=== PATIENT | female | born 1935 | race Caucasian/White ===

== ENCOUNTER 2019-11-30 14:52 | Inpatient (IN) | payer MEDICARE, SELFPAY ==
[2019-11-30] VITALS (7 sets, daily range): BP systolic 104–155; BP diastolic 52–85; PULSE 94–120; RESP 18–32; TEMP 36.2–36.9; O2SAT 92–100; BMI 21.6
--- NOTE | ~2019-11-30 | CT_ITS ---
EXAMINATION: CTA chest PE protocol DATE: 12/02/2019 13:29 INDICATION: Shortness of breath. Hypoxemia. Elevated d-dimer TECHNIQUE: Computed tomography angiography (CTA) of the chest was performed with 100 mL Omnipaque-350 intravenous contrast timed to evaluate the pulmonary arteries. Coronal maximum intensity projection 3D-reconstructions were created by the technologist. Automated exposure control and iterative reconst ruction technique were employed. Exam dose: 179.10 mGy-cm total exam DLP. COMPARISON: 08/04/2019 portable AP chest / portable AP chest 11/30/2019 portable AP chest FINDINGS: There is moderate opacification the pulmonary arteries and no evidence of pulmonary embolis m. Cardiomegaly. No pericardial effusion. There is extensive thoracic aortic calcification but no evidence of thoracic aortic aneurysm or disse ction. Coronary artery calcifications. Emphysematous changes of the lungs. Bilateral apical scarring, greater on the right. No pulmonary inf iltrate or consolidation or pulmonary mass lesion is evident. There is old granulomatous disease including calcified right hilar and subcarinal nodes and extensive calcified hepatic and splenic granulomas. No hilar or mediastinal mass lesion or lymphadenopathy. Bilateral glenohumeral osteoarthritis. No suspicious osteolytic or osteoblastic lesions are noted. IMPRESSION: Emphysema No evidence of pulmonary embolism Reviewed, dictated and finalized at [facility]. Reviewed, dictated and finalized at location B. OLE PRESSER
--- NOTE | ~2019-11-30 | XR_ITS ---
EXAMINATION: XR chest 1V portable DATE: 11/30/2019 15:28 INDICATION: Tarsal breath and hypoxemia TECHNIQUE: frontal view of the chest was obtained. COMPARISON: Chest radiograph dated 11/22/2019 FINDINGS: Hyperexpansion of the lungs and flattening of the diaphragm. There is increased lucency and developer architect ural distortion at the bilateral lung bases suggesting bullous emphysema. Calcified pulmonary nodules in the right lung and calcified right hilar lymph nodes consistent with old granulomatous disease. N o pulmonary edema or pneumothorax. Chronic blunting at the costophrenic angles which was present with out blunting of the posterior sulci on earlier two-view chest radiograph dated 10/15/2017 which would favor pleural parenchymal scarring over small pleural effusions. The cardiomediastinal silhouette is normal. Atherosclerotic aorta. Moderate degenerative skeletal changes in the spine and at the right s houlder. IMPRESSION: 1. Emphysema. No acute cardiopulmonary disease. Reviewed, dictated and finalized at location A. DESIGNER APPRENTICE
--- NOTE | ~2019-11-30 | US_ITS ---
EXAMINATION: US venous doppler [facility] DATE: 12/02/2019 13:46 INDICATION: Shortness of breath, abnormal d-dimer TECHNIQUE: Waite scale images without and with compression and Doppler images of the bilateral lower e xtremity veins were obtained. COMPARISON: None. FINDINGS: The right common femoral vein, profunda femoral vein, femoral vein, popliteal vein, peroneal trunk, p osterior tibial veins, and greater saphenous vein are patent. The left common femoral vein, profunda femoral vein, femoral vein, popliteal vein, peroneal trunk, po sterior tibial veins, and greater saphenous vein are patent. IMPRESSION: 1. Patent bilateral lower extremity veins. No evidence of deep venous thrombosis. Reviewed, dictated and finalized at location A. CLEANER IMPRESSION: 1. Patent bilateral lower extremity veins. No evidence of deep venous thrombosi s.
--- NOTE | 2019-11-30 15:05 | ECG_ITS ---
Measurements Intervals [place] Rate: 110 P: ID: 0 QRS: 93 QRSD: 81 T: 98 QT: 327 QTc: 442 Interpretive Statements ATRIAL FIBRILLATION WITH RAPID VENTRICULAR RESPONSE VENTRICULAR COUPLET RIGHT AXIS DEVIATION BORDERLINE R WAVE PROGRESSION, ANTERIOR LEADS BORDERLINE T WAVE ABNORMALITY- LATERAL LEADS BASELINE ARTIFACT- I, II, III, AVR, AVL, AVF, V1-V6 ABNORMAL ECG Electronically Signed On 12-01-2019 7:18:05 BENEFITS ADMINISTRATOR by Cecilio Kevin D.O.
--- NOTE | 2019-11-30 15:31 | ED.SOB ---
HPI - SOB/Dyspnea General Chief Complaint: Shortness of Breath/Dyspnea Stated Complaint: Ambulance Source: patient Mode of arrival: EMS Limitations: other (Hard of hearing) History of Present Illness HPI Narrative: 84 y.o. with COPD developed increase fatigue and shortness of breath 3 days ago. SOB worse today, not relieved with oxygen 3 L per n.p. She typically uses oxygen 2-2.5 L at night. Pulse ox runs 89%-90%. Yesterday she needed continuous O2; increased to 3 L. today with only temporary improvement. Paramedics reported pulse ox of 78% on room air; 90% on 4 liters. She has an occasional cough, sometimes productive of thick sputum. This hasn't changed recently. She fell back hitting the corner of a table several days ago. Pain with palpation only; denies pain with breathing. Exacerbating factors: exertion Relieving factors: oxygen Treatment prior to arrival: oxygen, bronchodilator and other (solumedrol 125 mg) Related Data Home oxygen amount: 4 liters Home Medications Medication Instructions Recorded Confirmed aspirin [Adult Low Dose Aspirin] 81 mg PO DAILY 11/22/19 11/30/19 buspirone 2.5 mg PO BID PRN 11/22/19 11/30/19 coQ10 (ubiquinol) 100 mg PO DAILY 11/22/19 11/30/19 fludrocortisone 0.1 mg PO BID 11/22/19 11/30/19 levothyroxine 50 mcg PO DAILY 11/22/19 11/30/19 midodrine 5 mg PO QID 11/22/19 11/30/19 alqvzjhq-zgk-FS-lycopen-lutein 1 tablet PO DAILY 11/22/19 11/30/19 [Centrum Silver] potassium chloride 20 meq PO DAILY 11/22/19 11/30/19 pravastatin 40 mg PO DAILY 11/22/19 11/30/19 sennosides-docusate sodium 1 tab-cap PO HS 11/22/19 11/30/19 [Senokot-S] Allergies Allergy/AdvReac Type Severity Reaction Status Date / Time Penicillins Allergy Intermediate Verified 11/23/19 00:48 Review of Systems Review of Systems: Narrative: Alert. In good spirits. Talking with friends. Constitutional: Constitutional: Denies chills and Denies fever(s) ENT: Denies dizziness and Denies nasal congestion Cardiovascular: Cardiovascular: Denies chest pain and Denies radiating jaw, neck or arm pain Respiratory: Respiratory: Reports as per HPI Gastrointestinal: Gastrointestinal: Denies abdominal pain, Denies diarrhea, Denies nausea and Denies vomiting Genitourinary: Genitourinary: Denies dysuria Musculoskeletal: Musculoskeletal: Reports no additional musculoskeletal complaints Integumentary/Breasts: Skin/Breast: Denies rash Neurologic: Denies syncope Hematologic/Lymphatic: Hematologic/Lymphatic: Denies easy bleeding PMFSH Past Medical History Medical History Chronic a-fib Diverticulitis Dysphagia Esophageal dilatation Esophageal stricture Foreign body aspiration Fracture of right hip requiring operative repair GERD (gastroesophageal reflux disease) H/O: CVA (cerebrovascular accident) Hyperlipidemia Lower GI bleed Social History Social History (Updated 11/30/19 @ 22:30 by Messi Siegel MD) Smoking packs per day: 0.75 Smoking cigarettes per day: 15.0 Years smoked: 65 Smoking pack-years: 48.75 Smoking status: Current some day smoker Tobacco type: cigarettes Alcohol intake: never Substance use: never Gender identity (if verbalized by the patient): Female Spiritual care concerns: No Agree to blood products: Yes Exam Const: Orientation/consciousness: patient oriented x3 HENMT: Head: normal to inspection Mouth: Yes Normal oral and palatal mucosa present Other: Decayed left maxillary molar Eyes: Conjunctivae: conjunctivae normal Neck: Neck: no lymphadenopathy Chest: Other: barrel chest Resp: Auscultation: rales on the left at the base and wheezes throughout Cardio: Heart sounds: no murmurs GI: GI Palp: Yes Soft to palpation and No Tenderness to palpation present (GI) Back/Spine/Pelvis: Other: Tender left mid-scapular line, lower rib cage Neuro: General: patient oriented x3 and moves all extremities Extrem:
[2019-11-30] MEDS: IPRATROPIUM 0.5 MG/ALBUTEROL SULFATE 2.5 MG AMPUL.NEB 3 ML INHALATION (15:33)
[2019-11-30 15:48] LABS: Basophils Absolute Auto 0.03 K/mm3 (0.00-0.10); Basophils Percent Auto 0.2 % (0.0-1.0); Eosinophils Absolute Auto 0.27 K/mm3 (0.02-0.50); Hematocrit 37.6 % (35.0-42.0); Hemoglobin 11.1 g/dL (11.7-13.8); Immature Granulocyte Absolute 0.07 K/mm3 (0.00-0.00); Immature Granulocyte Percent A 0.5 % (0.0-0.0); Lymphocytes Absolute Auto 0.68 K/mm3 (1.10-4.50); Lymphocytes Percent Auto 5.1 % (18.0-42.0); Mean Corpuscular HGB Conc 29.5 g/dL (32.0-36.0); Mean Corpuscular Hemoglobin 24.1 pg (27.0-31.0); Mean Corpuscular Volume 81.6 fL (78.0-102.0); Mean Platelet Volume 10.6 fl (9.2-11.8); Monocytes Absolute Auto 0.38 K/mm3 (0.10-0.90); Monocytes Percent Auto 2.8 % (2.0-11.0); Neutrophils Percent Auto 89.4 % (50.0-70.0); Platelet Count Result 204 K/mm3 (150-420); Red Blood Count 4.61 M/mm3 (4.20-5.40); White Blood Count 13.4 K/mm3 (4.8-10.8)
[2019-11-30] MEDS: MIDODRINE HCL 2.5 MG TABLET 5 MG PO ×2 (16:00→20:16)
[2019-11-30 16:11] LABS: Alanine Aminotransferase 39 U/L (14-59); Albumin Level 3.4 g/dL (3.4-5.0); Alkaline Phosphatase 137 U/L (46-116); Anion Gap 7.8 mmol/L (7-16); Aspartate Amino Transferase 43 U/L (15-37); Bilirubin,Total 0.4 mg/dL (0.00-1.00); Blood Urea Nitrogen 16 mg/dL (7-18); Calcium 9.2 mg/dL (8.5-10.1); Carbon Dioxide 36 mmol/L (21-32); Chloride 103 mmol/L (98-108); Estimated CRCL calculation 42 ml/min; Estimated Glomerular Filt Rate > 60; Glucose 134 mg/dL (70-99); Osmolality Calculated 297 mOsm/kg (285-295); Potassium 4.8 mmol/L (3.5-5.1); Sodium 142 mmol/L (136-145); Total Protein 7.2 g/dL (6.4-8.2)
[2019-11-30 16:13] LABS: BNP 394 pg/mL (0-100)
[2019-11-30 16:21] LABS: Base Excess ABG -2.4 mmol/L (0-2); HCO3 ABG 22.6 mmol/L (23-29); Oxygen Content ABG 10.7 %vol (16.0-22.0); PCO2 ABG 39.9 mmHg (35-45); PO2 ABG 70.2 mmHg (75-85); Total Hemoglobin 8.2 g/dL; pH ABG 7.37 (7.35-7.45)
[2019-11-30 16:22] LABS: Modified Allen's Test Pass; Site Drawn LEFT RADIAL
[2019-11-30 16:23] LABS: Device NASAL CANNULA
[2019-11-30 16:23] LABS: Lactic Acid 1.6 mmol/L (0.4-2.0)
--- NOTE | 2019-11-30 17:08 | PC.NURSE ---
Pt resting, states breathing feels mildly improved. Will continue to monitor.
--- NOTE | 2019-11-30 17:45 | PC.NURSE ---
Aware of plan for admission. Food tray ordered. O2 decreased to 3L via NC.
--- NOTE | 2019-11-30 18:12 | PC.NURSE ---
Pt eating. Report given to BELINDA Sterling. Pt will be transported to the floor once she has finished eating.
--- NOTE | 2019-11-30 18:14 | PC.NURSE ---
Pt's POA is her daughter, Tyesha St. Phone # is [phone].
--- NOTE | 2019-11-30 19:17 | ADMGEN ---
This patient, Prabha St, was admitted to 2nd Floor Room 209-1. Patient/family oriented to hospital policies and general routines including ID bracelet, bed and alarms, visiting hours, pain management, procedures, bathroom and other care routines, personal items, smoking policy, room service/diet, and visiting hours. Valuables list has been completed. Information on how to activate the Rapid Response Team has been discussed. Patient/Family are encouraged to report perceived risks to care and to ask questions if they do not understand what they are told or what they should do.
--- NOTE | 2019-11-30 19:30 | PC.NURSE ---
Patient sitting up in bed. Visitors present. Conversing without SOB. O2 on at 3 liters
--- NOTE | 2019-11-30 20:30 | PC.NURSE ---
Patient O2 sats at 98%. Respirations regular and even. No SOB
--- NOTE | 2019-11-30 21:35 | PC.NURSE ---
Patient resting. Respirations regular and even. O2 on at 3 liters
[2019-11-30] MEDS: SENNA/DOCUSATE SODIUM TABLET 1 TAB PO (22:04)
--- NOTE | 2019-11-30 23:00 | PC.NURSE ---
Patient lying in bed with HOB elevated. Color pink. Respirations even and unlabored. O2 on @ 3 lpm/nc. Denies SOB. Call light in reach.
[2019-12-01] VITALS (12 sets, daily range): BP systolic 119–148; BP diastolic 58–72; PULSE 84–114; RESP 16–24; TEMP 36.6–37; O2SAT 96–99
--- NOTE | 2019-12-01 00:05 | PC.NURSE ---
VSS. O2 continues @ 3 lpm/nc. Denies SOB. Color pink. Respirations even and unlabored. Call light in reach.
[2019-12-01] MEDS: IPRATROPIUM 0.5 MG/ALBUTEROL SULFATE 2.5 MG AMPUL.NEB 3 ML INHALATION ×5 (00:54→23:58)
--- NOTE | 2019-12-01 01:00 | PC.NURSE ---
Daughter @ bedside and will stay with patient tonight. Patient ambulated to/from bathroom with walker and SBA with steady gait. Patient denied SOB but nurse noticed dyspnea. Color remained pink. O2 continues @ 3 lpm/nc. Unable to obtain UA due to paitent's bowels moving into collection hat. Call light in reach.
--- NOTE | 2019-12-01 02:05 | PC.NURSE ---
Patient (and daughter) appear to be sleeping. Patient's respirations even and unlabored. O2 continues @ 3 lpm/nc. Color pink. No distress noted. Call light in reach.
--- NOTE | 2019-12-01 03:00 | PC.NURSE ---
Patient appears to be sleeping by the rise and fall of her chest. Respirations even and unlabored. O2 continues @ 3 lpm/nc. No distress noted. Call light in reach.
--- NOTE | 2019-12-01 04:05 | PC.NURSE ---
Patient barely awakened for VS. Color pink. Respirations even and unlabored. HOB remains elevated. O2 continues @ 3 lpm/nc. No distress noted. Call light in reach.
--- NOTE | 2019-12-01 05:10 | PC.NURSE ---
Patient appears to be sleeping by the rise and fall of her chest. Respirations even and unlabored. Color pink. O2 continues @ 3 lpm/nc. No distress noted. Call light and personal belongings within reach.
[2019-12-01] MEDS: LEVOTHYROXINE SODIUM 50 MCG TABLET PO (05:51)
--- NOTE | 2019-12-01 06:01 | PC.NURSE ---
Patient had ambulated to/from bathroom with w/walker and contact guard assist with fairly steady gait. Patient became very dyspneic on the way back to bed. RT entering room @ that time and checked SpO2 which was only 77%. RT gave Duoneb and patient recovered easily. O2 continues @ 3 lpm/nc. Again unable to obtain UA due to small bit of BM in urine collection hat. Daughter @ bedside. Call light in reach.
[2019-12-01] MEDS: methylPREDNISolone SOD SUCC 125 MG VIAL 60 MG IV PUSH ×2 (09:25→17:13)
[2019-12-01] MEDS: NICOTINE (*PBKC) 14 MG PATCH 1 PATCH TRANSDERM (09:26)
[2019-12-01] MEDS: POTASSIUM CHLORIDE 20 MEQ TABLET PO (09:26)
[2019-12-01] MEDS: ENOXAPARIN 40 MG/0.4 ML SYRINGE SUB-Q (09:27)
[2019-12-01] MEDS: MULTIVITAMINS THERAPEUTIC TAB (*BKC) 1 TABLET PO (09:27)
[2019-12-01] MEDS: PRAVASTATIN SODIUM 20 MG TABLET 40 MG PO (09:27)
[2019-12-01] MEDS: PANTOPRAZOLE 40 MG TABLET PO (09:27)
[2019-12-01] MEDS: ASPIRIN 81 MG ENTERIC TABLET PO (09:27)
[2019-12-01] MEDS: FLUDROCORTISONE ACETATE 0.1 MG TABLET PO ×2 (09:28→17:14)
[2019-12-01 12:29] LABS: Add Urine Microscopic? NO; Appearance Urine Clear (Clear); Bilirubin Urine Negative (Negative); Blood Urine Negative (Negative); Color Urine Yellow (Yellow); Glucose Urine UA Negative (Negative); Ketones Urine Negative (Negative); Leukocyte Esterase Ur Negative (Negative); Nitrate Urine Negative (Negative); Protein Urine Negative (Negative); Urobilinogen Urine 0.2 mg/dL (0.2-1.0)
--- NOTE | 2019-12-01 13:08 | PM.IMHP ---
H&P: HPI History of Present Illness Chief complaint: Ambulance Narrative: Prabha St is a 84 year old female THAT PRESENTED TO THE ED WITH COMPLAINTS OF SHORTNESS OF BREATH AND DYSPNEA. PATIENT HAS A PAST MEDICAL HISTORY OF CHRONIC AFIB, DIVERTICULITIS, DYSPHAGIA, ESOPHAGEAL DILATION, ESOPHAGEAL STRICTURE, FOREIGN BODY ASPIRATION, FRACTURE OF THE RIGHT HIP REQUIRE OPERATIVE REPAIR, GERD, HISTORY OF A CVA, HYPERLIPIDEMIA, ANEMIA AND LOWER GI BLEED ACCORDING TO PATIENT SHE DEVELOPED INCREASED FATIGUE AND SHORTNESS OF BREATH 3 DAYS AGO. SHE DOES USE HOME OXYGEN AT 2-2.5 L AT NIGHT. SHE DID INCREASE HER OXYGEN AT 3 L WITH NO RELIEF. ACCORDING TO PARAMEDICS HER SATS WAS 78% ON ROOM AIR 90% ON 4 L. SHE ALSO COMPLAINED OF OCCASIONAL COUGH NONPRODUCTIVE. CURRENT VITAL SIGNS ARE 37.0, 100, 20, 96% ON 4 L NASAL CANNULA, 147/58. IN THE ED PATIENT DID RECEIVE SOLU-MEDROL, LEVAQUIN , OXYGEN THERAPY WITH NEBULIZER TREATMENT. SHE IS BEING ADMITTED FOR COPD EXACERBATION AND POSSIBLE NEWLY DIAGNOSED CONGESTIVE HEART FAILURE. PATIENT BMP WAS ELEVATED. I WILL COMPLETE A ECHO TO RULE OUT CONGESTIVE HEART FAILURE AND A REPEAT BMP. HER DAUGHTER ALSO NOTED THAT WHILE EATING SHE SEEMED TO BE CHOKING, I WILL ALSO COMPLETE A SWALLOW EVAL. PATIENT DOES HAVE A HISTORY OF ESOPHAGEAL STRICTURE WITH FOREIGN BODY ASPIRATION. PATIENT WAS CURRENTLY HERE ON 11/22 AND TREATED FOR UTI WITH ANTIBIOTICS SHE WAS ALSO HERE ON 11/23 IMAGING INDICATED A FOREIGN BODY IN ESOPHAGEAL, PATIENT WAS TRANSFERRED TO THE [facility] AND AN EGD WAS PERFORMED WITH FOREIGN BODY REMOVAL. . PATIENT DENIES SOB, CP, PALPITATION, EXTREMITY NUMBNESS, LIGHTHEADNESS, DIZZINESS, CONSTIPATION, DIARRHEA, OR CHILLS OR FEVER. Review of Systems Constitutional: Constitutional: Denies chills, Reports fatigue, Denies fever(s), Denies headache(s) and Reports weakness Cardiovascular: Cardiovascular: Denies chest pain, Denies chest pain at rest, Denies chest pain with activity and Reports dyspnea Respiratory: Respiratory: Denies chest congestion, Reports cough, Denies hemoptysis, Reports dyspnea, Reports dyspnea on exertion and Denies wheezing Gastrointestinal: Gastrointestinal: Denies constipation, Denies GI cramping, Denies dyspepsia, Denies diarrhea, Denies nausea and Denies vomiting Genitourinary: Genitourinary: Denies hematuria, Denies urinary frequency, Denies urinary hesitancy and Denies urinary urgency Musculoskeletal: Musculoskeletal: Denies joint swelling, Reports muscle weakness, Denies numbness, Denies tingling and Reports other ( RIGHT SHOULDER PAIN) Integumentary/Breasts: Skin/Breast: Reports system reviewed and no additional complaints, except as docu Neurologic: Reports Abnormal speech present, Denies vertigo, Denies dizziness, Denies syncope, Denies headache(s) and Denies weakness Psychiatric: Psychiatric: Denies anxiety, Denies confusion, Denies depression and Denies irritability PMFSH Past Medical History Medical History Chronic a-fib Diverticulitis Dysphagia Esophageal dilatation Esophageal stricture Foreign body aspiration Fracture of right hip requiring operative repair GERD (gastroesophageal reflux disease) H/O: CVA (cerebrovascular accident) Hyperlipidemia Lower GI bleed Social History Social History (Updated 11/30/19 @ 22:30 by Messi Siegel MD) Smoking packs per day: 0.75 Smoking cigarettes per day: 15.0 Years smoked: 65 Smoking pack-years: 48.75 Smoking status: Current some day smoker Tobacco type: cigarettes Alcohol intake: never Substance use: never Gender identity (if verbalized by the patient): Female Spiritual care concerns: No Agree to blood products: Yes Meds Home Medications and Allergies Home Medications Medication Instructions Recorded Confirmed Type aspirin [Adult Low Dose Aspirin] 81 mg PO DAILY 11/22/19 11/30/19 History buspirone 2.5 mg PO BID PRN 11/22/19
[2019-12-01 13:13] LABS: Hematocrit 34.2 % (35.0-42.0); Hemoglobin 10.2 g/dL (11.7-13.8); Mean Corpuscular HGB Conc 29.8 g/dL (32.0-36.0); Mean Corpuscular Hemoglobin 23.8 pg (27.0-31.0); Mean Corpuscular Volume 79.7 fL (78.0-102.0); Mean Platelet Volume 10.5 fl (9.2-11.8); Platelet Count Result 214 K/mm3 (150-420); Red Blood Count 4.29 M/mm3 (4.20-5.40); Red Cell Distribution Width 17.8 % (11.6-14.4); White Blood Count 10.1 K/mm3 (4.8-10.8)
[2019-12-01 13:22] LABS: Anion Gap 7.1 mmol/L (7-16); Blood Urea Nitrogen 19 mg/dL (7-18); Carbon Dioxide 37 mmol/L (21-32); Chloride 101 mmol/L (98-108); Estimated CRCL calculation 38 ml/min; Estimated Glomerular Filt Rate > 60; Glucose 121 mg/dL (70-99); Osmolality Calculated 293 mOsm/kg (285-295); Potassium 5.1 mmol/L (3.5-5.1); Sodium 140 mmol/L (136-145)
[2019-12-01 13:32] LABS: BNP 536 pg/mL (0-100)
[2019-12-01] MEDS: LIDOCAINE 5% PATCH 1 PATCH TRANSDERM (13:46)
--- NOTE | 2019-12-01 14:41 | PC.NURSE ---
Kandi Velez called and notified of Order for Lars Lucas and
[2019-12-01] MEDS: FUROSEMIDE 40 MG TABLET PO (14:57)
[2019-12-01] MEDS: SENNA/DOCUSATE SODIUM TABLET 1 TAB PO (20:56)
--- NOTE | 2019-12-01 20:59 | PC.NURSE ---
Midodrine held due to patient's blood pressure being 150/66.
[2019-12-02] VITALS (18 sets, daily range): BP systolic 111–163; BP diastolic 42–83; PULSE 68–117; RESP 16–20; TEMP 36.4–36.8; O2SAT 88–99
[2019-12-02] MEDS: IPRATROPIUM 0.5 MG/ALBUTEROL SULFATE 2.5 MG AMPUL.NEB 3 ML INHALATION ×3 (05:38→18:01)
[2019-12-02] MEDS: LEVOTHYROXINE SODIUM 50 MCG TABLET PO (06:07)
[2019-12-02] MEDS: methylPREDNISolone SOD SUCC 125 MG VIAL 60 MG IV PUSH ×2 (08:53→17:31)
[2019-12-02] MEDS: PRAVASTATIN SODIUM 20 MG TABLET 40 MG PO (08:54)
[2019-12-02] MEDS: ENOXAPARIN 40 MG/0.4 ML SYRINGE SUB-Q (08:54)
[2019-12-02] MEDS: NICOTINE (*PBKC) 14 MG PATCH 1 PATCH TRANSDERM (08:54)
[2019-12-02] MEDS: ASPIRIN 81 MG ENTERIC TABLET PO (08:55)
[2019-12-02] MEDS: PANTOPRAZOLE 40 MG TABLET PO (08:55)
[2019-12-02] MEDS: MULTIVITAMINS THERAPEUTIC TAB (*BKC) 1 TABLET PO (08:55)
[2019-12-02] MEDS: FUROSEMIDE 40 MG TABLET PO (08:55)
[2019-12-02] MEDS: POTASSIUM CHLORIDE 20 MEQ TABLET PO (08:55)
[2019-12-02] MEDS: FLUDROCORTISONE ACETATE 0.1 MG TABLET PO ×2 (08:57→17:31)
[2019-12-02] MEDS: AMLODIPINE BESYLATE 5 MG TABLET 2.5 MG PO (09:10)
[2019-12-02 09:12] LABS: Hematocrit 35.3 % (35.0-42.0); Hemoglobin 10.5 g/dL (11.7-13.8); Mean Corpuscular HGB Conc 29.7 g/dL (32.0-36.0); Mean Corpuscular Hemoglobin 23.7 pg (27.0-31.0); Mean Corpuscular Volume 79.7 fL (78.0-102.0); Mean Platelet Volume 10.1 fl (9.2-11.8); Platelet Count Result 217 K/mm3 (150-420); Red Blood Count 4.43 M/mm3 (4.20-5.40); White Blood Count 9.6 K/mm3 (4.8-10.8)
[2019-12-02 09:21] LABS: Anion Gap 7.6 mmol/L (7-16); Blood Urea Nitrogen 18 mg/dL (7-18); Calcium 8.8 mg/dL (8.5-10.1); Carbon Dioxide 39 mmol/L (21-32); Chloride 100 mmol/L (98-108); Estimated CRCL calculation 33 ml/min; Estimated Glomerular Filt Rate 57; Glucose 246 mg/dL (70-99); Osmolality Calculated 305 mOsm/kg (285-295); Potassium 3.6 mmol/L (3.5-5.1); Sodium 143 mmol/L (136-145)
--- NOTE | 2019-12-02 10:45 | PC.NURSE ---
Patient transported off of floor for xray
--- NOTE | 2019-12-02 11:21 | PM.IMPN ---
Progress Note: A&P Assessment and Plan (1) Dysphagia: Qualifiers: Dysphagia type: pharyngoesophageal phase Qualified Code(s): R13.14 - Dysphagia, pharyngoesophageal phase Code(s): R13.10 - Dysphagia, unspecified Status: Acute Assessment and Plan: -PATIENT HAS A HISTORY OF ESOPHAGEAL STRICTURE - RECENT EGD WITH FOREIGN BODY REMOVAL COMPLETED- - ACCORDING TO DAUGHTER SHE WITNESSED HER MOTHER POSSIBLY CHOKING FOOD, TO SWALLOW EVALUATION ORDERED. - CONTINUE SOFT DIET -PATIENT HAS A HISTORY OF ESOPHAGEAL STRICTURE - RECENT EGD WITH FOREIGN BODY REMOVAL COMPLETED- - SPEECH THERAPY AT BEDSIDE PATIENT REFUSED BARIUM SWALLOW EVAL BUT WILL PARTICIPATE IN EXERCISES TO STRENGTHEN HER SWALLOWING. - WILL CHANGE DIET TO SOFT (2) Acute exacerbation of chronic obstructive airways disease: Code(s): J44.1 - Chronic obstructive pulmonary disease with (acute) exacerbation Status: Acute Assessment and Plan: STABLE -CONTINUE SOLU-MEDROL - EDUCATED PATIENT ON SMOKING CESSATION - CONTINUE NICOTINE PATCH - CONTINUE LEVAQUIN AND SOLU-MEDROL - CONTINUE USE OF OXYGEN SUPPLEMENT - WILL COMPLETE A HOME O2 EVAL TO SEE IF CONTINUES OXYGEN NEEDED - CONTINUE NEBULIZER TREATMENTS - CHEST X-RAY INDICATED EMPHYSEMA (3) Elevated brain natriuretic peptide (BNP) level: Code(s): R79.89 - Other specified abnormal findings of blood chemistry Status: Acute Assessment and Plan: -PATIENT BNP ELEVATED, SHE DOES NOT HAVE A HISTORY OF CONGESTIVE HEART FAILURE. - ECHO ORDERED AND PENDING - REPEAT BNP IN A.M. BMP ON ADMISSION 394 INCREASE TO 536 TODAY'S BMP PENDING LASIX GIVE DAILY - (4) DVT prophylaxis: Code(s): Z29.9 - Encounter for prophylactic measures, unspecified Status: Acute Assessment and Plan: CONTINUE LOVENOX WILL CLOSELY MONITOR DUE TO PATIENT'S HISTORY OF GI BLEED (5) GERD (gastroesophageal reflux disease): Code(s): K21.9 - Gastro-esophageal reflux disease without esophagitis Status: Acute Assessment and Plan: CONTINUE PROTONIX (6) Elevated d-dimer: Code(s): R79.89 - Other specified abnormal findings of blood chemistry Status: Acute Assessment and Plan: R/O DVT OR PE - D-DIMER ELEVATED TO 2.2 TO - CTA PENDING DOPPLER PENDING Subjective Date/time seen: 12/02/19 11:21PATIENT DAY RESTING, SHE HAS NO COMPLAINTS AT THIS TIME. SHE DID NOT SLEEP WELL AND SHE WOULD TO OVERNIGHT DUE TO FREQUENT URINATION CAUSED BY LASIX. SPEECH THERAPY DID VISIT PATIENT TODAY, SHE REFUSED BARIUM SWALLOW EVAL BUT DID AGREE TO EXERCISE THERAPY. SOFT DIET HAS BEEN ORDERED ON THIS PATIENT. I WILL ALSO ORDER A D-DIMER THIS PATIENT TO OUT A PE OR DVT. IF TEST IS D-DIMER IS POSITIVE I WILL ORDER CTA AND A VENOUS DOPPLER. PATIENT DOES NOT APPEAR TO BE IN ANY DISTRESS AT THIS TIME PATIENT DENIES SOB, CP, PALPITATION, EXTREMITY NUMBNESS, LIGHTHEADNESS, DIZZINESS, CONSTIPATION, DIARRHEA, OR CHILLS OR FEVER. Review of Systems Constitutional: Constitutional: Denies chills, Reports fatigue, Denies fever(s), Denies headache(s) and Denies weakness ENT: Denies vertigo, Denies dizziness and Denies headache(s) Cardiovascular: Cardiovascular: Denies chest pain, Denies chest pain at rest, Denies chest pain with activity, Denies syncope, Denies edema, Denies leg edema, Reports dyspnea and Reports dyspnea on exertion Respiratory: Respiratory: Denies chest congestion, Reports cough, Denies hemoptysis, Reports dyspnea, Reports dyspnea on exertion and Denies wheezing Gastrointestinal: Gastrointestinal: Denies constipation, Denies GI cramping, Denies dyspepsia, Denies diarrhea, Denies nausea and Denies vomiting Genitourinary: Genitourinary: Reports no additional female genitourinary complaints, Denies hematuria, Denies urinary frequency, Denies urinary hesitancy and Denies urinary urgency Musculoskeletal: Musculoskeletal: Denies joint swelling, Reports muscle
[2019-12-02 11:24] LABS: D Dimer 2.22 mg/L (0.19-0.50)
--- NOTE | 2019-12-02 11:24 | PC.NURSE ---
Lab notified D Dimer 01.03. Cecelia BOLDEN notified
[2019-12-02 12:03] LABS: BNP 512 pg/mL (0-100)
--- NOTE | 2019-12-02 13:50 | PC.NURSE ---
Patient transported back to floor
--- NOTE | 2019-12-02 15:51 | HOMEO2EVAL ---
Home Oxygen Evaluation RC: Home Oxygen (O2) Evaluation Start: 12/02/19 11:48 Freq: ONCE Status: Active Protocol: RPE Activity Type Activity Date Activity User E-Sign Co-Sign Detail Recorded Client Recorded Date Recorded By Document 12/02/19 15:09 RAMIREZ [id number] 12/02/19 15:50 RAMIREZ Document 12/02/19 15:10 RAMIREZ [id number] 12/02/19 15:50 RAMIREZ Document 12/02/19 15:11 RAMIREZ [id number] 12/02/19 15:50 RAMIREZ Document 12/02/19 15:14 RAMIREZ [id number] 12/02/19 15:50 RAMIREZ Document 12/02/19 15:15 RAMIREZ [id number] 12/02/19 15:50 RAMIREZ 12/02/19 12/02/19 12/02/19 15:09 15:10 15:11 Home O2 Evaluation Test Phase Resting Resting Exercise Oxygen Delivery Room Air Nasal Cannula Nasal Cannula Oxygen Flow Rate (L/min) 0 1 1 Pulse Oximetry (90-100 %) 88 L 90 88 L Pulse Rate (60-100 beats/min) 107 H 98 107 H Activity Tolerance Fair Fair Rating of Perceived Dyspnea (PD) +1 Mild, +1 Mild, +2 Mild, Some Noticeable to Noticeable to Difficulty, the Participant the Participant Noticeable to but Not to an but Not to an the Observer Observer Observer Rate of Perceived Exertion (PE) 10 10 13 Somewhat Hard Ambulation Distance (feet) 10 Home Oxygen Evaluation Comments at rest in pulse rate c/o dizziness. recliner on irregular 88- Sat down room air. 107 at rest briefly then caregiver walked pushing concerned that w/c with gait she may be in belt and assist atrial of two. walked fibrillation. to doorway HR 88-107 at then had rest. desaturation to 88%. Oxygen turned up to 2 lpm for continued walk. Treatment Charges O2 Evaluation 12/02/19 12/02/19 15:14 15:15 Home O2 Evaluation Test Phase Exercise Exercise Oxygen Delivery Nasal Cannula Nasal Cannula Oxygen Flow Rate (L/min) 2 3 Pulse Oximetry (90-100 %) 89 L 94 Pulse Rate (60-100 beats/min) 68 94 Activity Tolerance Poor Poor Rating of Perceived Dyspnea (PD) +3 Moderate +3 Moderate Difficulty, But Difficulty, But Can Continue Can Continue Rate of Perceived Exertion (PE) 15 Hard 15 Hard Ambulation Distance (feet) 50 50 Home Oxygen Evaluation Comments no improvement patient c/o of in saturation need to sit at 2 lpm. will down,unable to increase to 3 walk anymore. lpm. sat in w/c and pushed back to her room. Treatment Charges
--- NOTE | 2019-12-02 16:24 | PM.EVENT ---
Event Note Event Note Event Note: Patient is upbeat today. She has no complaints. Requiring nasal O2 to keep normal sats today. Very mild increased work of breathing with bilateral late expiratory wheezing, air trapping and decreased breath sounds throughout. Regular rate and rhythm with good peripheral pulses. Continue current care anticipating her decreased need for daytime O2. On antibiotics. History of paroxysmal AFib and on admission was taking only aspirin. history of GI bleeding. As the family has been asking about anticoagulation, will consult with the PCP and the family regarding future anticoagulation decisions.
[2019-12-02] MEDS: SENNA/DOCUSATE SODIUM TABLET 1 TAB PO (20:57)
[2019-12-02] MEDS: MIDODRINE HCL 2.5 MG TABLET 5 MG PO (20:58)
[2019-12-03] VITALS (13 sets, daily range): BP systolic 116–158; BP diastolic 57–79; PULSE 92–115; RESP 16–20; TEMP 36.2–36.8; O2SAT 95–99
[2019-12-03] MEDS: IPRATROPIUM 0.5 MG/ALBUTEROL SULFATE 2.5 MG AMPUL.NEB 3 ML INHALATION ×3 (01:14→12:57)
[2019-12-03 05:21] LABS: Hematocrit 35.3 % (35.0-42.0); Hemoglobin 10.8 g/dL (11.7-13.8); Mean Corpuscular HGB Conc 30.6 g/dL (32.0-36.0); Mean Corpuscular Hemoglobin 23.7 pg (27.0-31.0); Mean Corpuscular Volume 77.6 fL (78.0-102.0); Mean Platelet Volume 10.5 fl (9.2-11.8); Platelet Count Result 246 K/mm3 (150-420); Red Blood Count 4.55 M/mm3 (4.20-5.40); Red Cell Distribution Width 17.7 % (11.6-14.4)
[2019-12-03 05:30] LABS: Anion Gap 4.6 mmol/L (7-16); Blood Urea Nitrogen 21 mg/dL (7-18); Calcium 8.8 mg/dL (8.5-10.1); Carbon Dioxide 42 mmol/L (21-32); Chloride 100 mmol/L (98-108); Estimated CRCL calculation 44 ml/min; Estimated Glomerular Filt Rate > 60; Glucose 154 mg/dL (70-99); Osmolality Calculated 302 mOsm/kg (285-295); Potassium 3.6 mmol/L (3.5-5.1); Sodium 143 mmol/L (136-145)
[2019-12-03 05:36] LABS: BNP 290 pg/mL (0-100)
[2019-12-03] MEDS: LEVOTHYROXINE SODIUM 50 MCG TABLET PO (06:33)
[2019-12-03] MEDS: NICOTINE (*PBKC) 14 MG PATCH 1 PATCH TRANSDERM (09:08)
[2019-12-03] MEDS: methylPREDNISolone SOD SUCC 125 MG VIAL 60 MG IV PUSH (09:10)
[2019-12-03] MEDS: FLUDROCORTISONE ACETATE 0.1 MG TABLET PO (09:10)
[2019-12-03] MEDS: MIDODRINE HCL 2.5 MG TABLET 5 MG PO (09:10)
[2019-12-03] MEDS: PRAVASTATIN SODIUM 20 MG TABLET 40 MG PO (09:10)
[2019-12-03] MEDS: ENOXAPARIN 40 MG/0.4 ML SYRINGE SUB-Q (09:10)
[2019-12-03] MEDS: POTASSIUM CHLORIDE 20 MEQ TABLET PO (09:11)
[2019-12-03] MEDS: MULTIVITAMINS THERAPEUTIC TAB (*BKC) 1 TABLET PO (09:11)
[2019-12-03] MEDS: ASPIRIN 81 MG ENTERIC TABLET PO (09:11)
[2019-12-03] MEDS: FUROSEMIDE 40 MG TABLET PO (09:11)
[2019-12-03] MEDS: AMLODIPINE BESYLATE 5 MG TABLET 2.5 MG PO (09:11)
[2019-12-03] MEDS: PANTOPRAZOLE 40 MG TABLET PO (09:11)
--- NOTE | 2019-12-03 11:15 | ECG_ITS ---
Measurements Intervals [place] Rate: 101 P: [place]: 0 QRS: 88 QRSD: 94 T: 27 QT: 331 QTc: 431 Interpretive Statements ATRIAL FIBRILLATION WITH RAPID VENTRICULAR RESPONSE BORDERLINE R WAVE PROGRESSION, ANTERIOR LEADS MINIMAL Q WAVES- INFERIOR LEADS BASELINE ARTIFACT- V1, V3 ABNORMAL ECG Electronically Signed On 12-03-2019 13:13:06 FRONT DESK HOST by Cecilio Kevin D.O.
[2019-12-03] MEDS: DIGOXIN TAB 125 MCG TABLET PO (12:40)
--- NOTE | 2019-12-03 15:09 | PM.DS ---
DS: Diagnosis Admitting Diagnosis Admitting Diagnosis: Chronic obstructive pulmonary disease with (acute) exacerbation Discharge Diagnosis (1) Dysphagia: Qualifiers: Dysphagia type: pharyngoesophageal phase Qualified Code(s): R13.14 - Dysphagia, pharyngoesophageal phase Code(s): R13.10 - Dysphagia, unspecified Status: Acute Assessment and Plan: -PATIENT HAS A HISTORY OF ESOPHAGEAL STRICTURE - RECENT EGD WITH FOREIGN BODY REMOVAL COMPLETED- - CONTINUE SOFT DIET (2) Acute exacerbation of chronic obstructive airways disease: Code(s): J44.1 - Chronic obstructive pulmonary disease with (acute) exacerbation Status: Acute Assessment and Plan: STABLE - EDUCATED PATIENT ON SMOKING CESSATION - CONTINUE NICOTINE PATCH - CONTINUE LEVAQUIN AND 20 mg t.i.d. for 4 days then 20 mg b.i.d. for 3 days then 20 mg daily for 3 days - CONTINUE USE OF OXYGEN SUPPLEMENT continuously instead of nighttime only on 2-3 L - CHEST X-RAY INDICATED EMPHYSEMA (3) Elevated brain natriuretic peptide (BNP) level: Code(s): R79.89 - Other specified abnormal findings of blood chemistry Status: Acute Assessment and Plan: -PATIENT BNP ELEVATED, SHE DOES NOT HAVE A HISTORY OF CONGESTIVE HEART FAILURE. - ECHO ORDERED AND PENDING - REPEAT BNP IN A.M. BMP ON ADMISSION 394 INCREASE TO 536 TODAY'S BMP PENDING LASIX GIVE DAILY - (4) DVT prophylaxis: Code(s): Z29.9 - Encounter for prophylactic measures, unspecified Status: Acute Assessment and Plan: CONTINUE LOVENOX WILL CLOSELY MONITOR DUE TO PATIENT'S HISTORY OF GI BLEED (5) GERD (gastroesophageal reflux disease): Code(s): K21.9 - Gastro-esophageal reflux disease without esophagitis Status: Acute Assessment and Plan: CONTINUE PROTONIX (6) Elevated d-dimer: Code(s): R79.89 - Other specified abnormal findings of blood chemistry Status: Acute Assessment and Plan: R/O DVT OR PE - D-DIMER ELEVATED TO 2.2 TO - CTA PENDING DOPPLER PENDING DS: Summary Hospital Course Hospital Course: Admission H&P Prabha St is a 84 year old female THAT PRESENTED TO THE ED WITH COMPLAINTS OF SHORTNESS OF BREATH AND DYSPNEA. PATIENT HAS A PAST MEDICAL HISTORY OF CHRONIC AFIB, DIVERTICULITIS, DYSPHAGIA, ESOPHAGEAL DILATION, ESOPHAGEAL STRICTURE, FOREIGN BODY ASPIRATION, FRACTURE OF THE RIGHT HIP REQUIRE OPERATIVE REPAIR, GERD, HISTORY OF A CVA, HYPERLIPIDEMIA, ANEMIA AND LOWER GI BLEED ACCORDING TO PATIENT SHE DEVELOPED INCREASED FATIGUE AND SHORTNESS OF BREATH 3 DAYS AGO. SHE DOES USE HOME OXYGEN AT 2-2.5 L AT NIGHT. SHE DID INCREASE HER OXYGEN AT 3 L WITH NO RELIEF. ACCORDING TO PARAMEDICS HER SATS WAS 78% ON ROOM AIR 90% ON 4 L. SHE ALSO COMPLAINED OF OCCASIONAL COUGH NONPRODUCTIVE. CURRENT VITAL SIGNS ARE 37.0, 100, 20, 96% ON 4 L NASAL CANNULA, 147/58. IN THE ED PATIENT DID RECEIVE SOLU-MEDROL, LEVAQUIN , OXYGEN THERAPY WITH NEBULIZER TREATMENT. SHE IS BEING ADMITTED FOR COPD EXACERBATION AND POSSIBLE NEWLY DIAGNOSED CONGESTIVE HEART FAILURE. PATIENT BMP WAS ELEVATED. I WILL COMPLETE A ECHO TO RULE OUT CONGESTIVE HEART FAILURE AND A REPEAT BMP. HER DAUGHTER ALSO NOTED THAT WHILE EATING SHE SEEMED TO BE CHOKING, I WILL ALSO COMPLETE A SWALLOW EVAL. PATIENT DOES HAVE A HISTORY OF ESOPHAGEAL STRICTURE WITH FOREIGN BODY ASPIRATION. PATIENT WAS CURRENTLY HERE ON 11/22 AND TREATED FOR UTI WITH ANTIBIOTICS SHE WAS ALSO HERE ON 11/23 IMAGING INDICATED A FOREIGN BODY IN ESOPHAGEAL, PATIENT WAS TRANSFERRED TO THE [facility] AND AN EGD WAS PERFORMED WITH FOREIGN BODY REMOVAL. . On discharge it was determnedAfter home O2 evaluation the patient will require continuous oxygen. Patient previously on 2-3 L nasal cannula only at night. According to the evaluation patient's saturation 88% resting in heart rates greater than 100 with +mild dyspnea, 90% on 1 L while resting with heart rates in the 90s
--- NOTE | 2019-12-08 14:25 | PC.NURSE ---
Discharge call back [phone] caregivers non medical answered the phone. Patient unavailible at the moment. message left for patient to call back
== END 2019-12-03 16:55 | disposition home health service (06) | DRG 191 ==
LOC: CHSED 14:57 → CHS2ND 17:54
PROVIDERS: Nurse Practitioner; Admitting Provider Family Medicine; Emergency Provider Family Medicine; PCP Internal Medicine; Visit Provider Family Medicine
DX: J44.1 Chronic obstructive pulmonary disease with (acute) exacerbation (principal); I48.20 Chronic atrial fibrillation, unspecified; K22.2 Esophageal obstruction; K57.90 Diverticulosis of intestine, part unspecified, without perforation or abscess without bleeding; K21.9 Gastro-esophageal reflux disease without esophagitis; E78.5 Hyperlipidemia, unspecified; F17.200 Nicotine dependence, unspecified, uncomplicated; Z86.73 Personal history of transient ischemic attack (TIA), and cerebral infarction without residual deficits
CPT/HCPCS: 36415; 36600; 71045; 71275; 80048; 80053; 81003; 82805; 83605; 83880; 85025; 85027; 85380; 87040; 92526; 92610; 93005; 93306; 93970; 94618; 94640; 96372; 96374; 96375; 97014; 97110; 97161; 97165; 97530; 97535; 99285; A9270; G0283; G0378; J1650; J1956; J2930; Q9965

== ENCOUNTER 2020-01-09 14:58 | Outpatient (CLI) | payer MEDICARE, SELFPAY ==
--- NOTE | ~2020-01-09 | XR_ITS ---
EXAMINATION: XR chest 2V DATE: 01/09/2020 15:34 INDICATION: Shortness of breath and upper respiratory infection TECHNIQUE: Frontal and lateral views of the chest are obtained COMPARISON: 11/30/2019 FINDINGS: The lungs are hyperinflated but free of acute opacities. There is no pleural effusion or pn eumothorax. The cardiomediastinal silhouette is normal. There is moderate thoracic spondylosis. Calci fied pulmonary nodules and calcified right hilar lymph nodes are consistent with old granulomatous di sease. IMPRESSION: 1. Hyperinflation without acute cardiopulmonary abnormality. Reviewed, dictated and finalized at location A. LIARY OPERATOR
[2020-01-09 15:27] LABS: Basophils Absolute Auto 0.06 K/mm3 (0.00-0.10); Basophils Percent Auto 0.5 % (0.0-1.0); Eosinophils Absolute Auto 0.03 K/mm3 (0.02-0.50); Eosinophils Percent Auto 0.3 % (1.0-6.0); Hematocrit 40.5 % (35.0-42.0); Hemoglobin 12.3 g/dL (11.7-13.8); Immature Granulocyte Percent A 0.9 % (0.0-0.0); Mean Corpuscular HGB Conc 30.4 g/dL (32.0-36.0); Mean Corpuscular Hemoglobin 24.9 pg (27.0-31.0); Mean Corpuscular Volume 82.2 fL (78.0-102.0); Mean Platelet Volume 9.8 fl (9.2-11.8); Monocytes Absolute Auto 1.24 K/mm3 (0.10-0.90); Monocytes Percent Auto 10.7 % (2.0-11.0); Neutrophils Absolute Auto 9.5 K/mm3 (1.7-7.2); Neutrophils Percent Auto 81.6 % (50.0-70.0); Platelet Count Result 249 K/mm3 (150-420); Red Blood Count 4.93 M/mm3 (4.20-5.40); Red Cell Distribution Width 21.2 % (11.6-14.4); White Blood Count 11.6 K/mm3 (4.8-10.8)
[2020-01-09 15:36] LABS: Alanine Aminotransferase 21 U/L (14-59); Albumin Level 3.8 g/dL (3.4-5.0); Anion Gap 10.9 mmol/L (7-16); Aspartate Amino Transferase 19 U/L (15-37); Bilirubin,Total 0.3 mg/dL (0.00-1.00); Blood Urea Nitrogen 13 mg/dL (7-18); Calcium 9.4 mg/dL (8.5-10.1); Carbon Dioxide 36 mmol/L (21-32); Chloride 98 mmol/L (98-108); Estimated Glomerular Filt Rate > 60; Glucose 128 mg/dL (70-99); Osmolality Calculated 294 mOsm/kg (285-295); Potassium 3.9 mmol/L (3.5-5.1); Sodium 141 mmol/L (136-145); Total Protein 7.6 g/dL (6.4-8.2)
[2020-01-09 15:39] LABS: Influenza Control Valid (Valid)
[2020-01-09 16:07] LABS: Alkaline Phosphatase 97 U/L (46-116)
== END 2020-01-09 14:59 | disposition home or self-care (01) ==
LOC: CHSLAB 15:00
PROVIDERS: PCP Internal Medicine; Visit Provider Nurse Practitioner Family
DX: J06.9 Acute upper respiratory infection, unspecified (principal); R53.1 Weakness
CPT/HCPCS: 36415; 71046; 80053; 85025; 87040; 87804

== ENCOUNTER 2020-01-15 14:52 | Outpatient (CLI) | payer MEDICARE, SELFPAY ==
--- NOTE | 2020-01-15 13:10 | ECG_ITS ---
Measurements Intervals [place] Rate: 86 P: [place]: 0 QRS: 93 QRSD: 90 T: 93 QT: 337 QTc: 404 Interpretive Statements ATRIAL FIBRILLATION RIGHT AXIS DEVIATION BORDERLINE R WAVE PROGRESSION, ANTERIOR LEADS NONSPECIFIC ST & T-WAVE ABNORMALITY- INF/LAT LEADS BASELINE ARTIFACT- II, III, AVR, AVL, AVF, V1-V3 ABNORMAL ECG Electronically Signed On 01-16-2020 7:08:43 MEDICAL ASSISTANT FLOAT by Cecilio Kevin D.O.
== END 2020-01-15 14:53 | disposition home or self-care (01) ==
LOC: CHSCARD 14:54
PROVIDERS: PCP Internal Medicine; Visit Provider Specialist
DX: I48.91 Unspecified atrial fibrillation (principal)
CPT/HCPCS: 93005

== ENCOUNTER 2020-01-23 09:16 | Inpatient (IN) | payer MEDICARE, SELFPAY ==
[2020-01-23] VITALS (18 sets, daily range): BP systolic 114–181; BP diastolic 64–88; PULSE 76–97; RESP 16–24; TEMP 36.2–37.1; O2SAT 86–100
--- NOTE | ~2020-01-23 | XR_ITS ---
EXAMINATION: XR chest 1V portable EXAM DATE: 01/23/2020 10:44 INDICATION: Shortness of breath. TECHNIQUE: Frontal and lateral projections of the chest obtained and reviewed. Comparison is made to prior examination from 01/09/2020. FINDINGS: There is chronic hyperinflation and lucent lung bases, probably severe emphysema, bullous disease. There are small bilateral pleural effusions. No acute airspace disease or pneumothorax. Card iomediastinal silhouette is normal. There are bony degenerative changes. There is aortic arterial scl erosis. IMPRESSION: 1. No acute airspace disease. 2. Small pleural effusions. 3. Chronic hyperinflation and emphysema. Reviewed, dictated and finalized at location B.
--- NOTE | ~2020-01-23 | XR_ITS ---
EXAMINATION: XR chest 1V portable EXAM DATE: 01/27/2020 09:20 INDICATION: Cough. TECHNIQUE: Frontal and lateral projections of the chest obtained and reviewed. Comparison is made to prior examination from 01/23/2020. FINDINGS: There is chronic hyperinflation and lucent lung bases, probably severe emphysema, basilar b ullous disease. There are small bilateral pleural effusions. No acute airspace disease or pneumothora x. Cardiomediastinal silhouette is normal. There are bony degenerative changes. There is aortic arter ial sclerosis. Chondral cartilage calcification. There is no significant interval change. IMPRESSION: 1. No acute airspace disease. 2. Small pleural effusions. 3. Chronic hyperinflation and emphysema. Reviewed, dictated and finalized at location A.
--- NOTE | 2020-01-23 09:27 | ECG_ITS ---
Measurements Intervals [place] Rate: 96 P: [place]: 0 QRS: 100 QRSD: 95 T: -60 QT: 339 QTc: 430 Interpretive Statements ATRIAL FIBRILLATION RIGHT AXIS DEVIATION BORDERLINE R WAVE PROGRESSION, ANTERIOR LEADS NONSPECIFIC ST & T-WAVE ABNORMALITY- INF/LAT LEADS BASELINE ARTIFACT- I, II, III, AVR, AVL, AVF, V1-V6 ABNORMAL ECG Electronically Signed On 01-23-2020 9:58:02 CDT by Cecilio Kevin D.O.
--- NOTE | 2020-01-23 09:54 | ED.SOB ---
HPI - SOB/Dyspnea General Chief Complaint: Shortness of Breath/Dyspnea Stated Complaint: trouble Breathing Time Seen by Provider: 01/23/20 09:35 Source: patient, EMS and other (Records from Dr Iglesias) Mode of arrival: EMS Limitations: clinical condition History of Present Illness HPI Narrative: Prabha is an 84-year-old female patient. She is brought to the emergency room from home by ambulance. Her main complaint is shortness of breath. This has been going on for several days, worst past couple of days. Prabha has a long history of nicotine dependence and abuse. She has history of COPD. She still smokes approximately a pack of cigarettes a day. She has history of chronic atrial fibrillation but according to the chart from Dr. Iglesias's office, she is only on aspirin 81 mg daily. She also takes digoxin 125 micro g daily. I do not see any other anticoagulation medication in the office chart. Patient is not aware of anything else. Her niece also brought a list of her medications and it only lists aspirin 81 mg. Her niece Magnolia also called another niece Virgen Crespoasiaolive and she confirmed this. Apparently Prabha had been on some blood thinner in the past and because of history of falls, she was taken off of it and started on aspirin. Prabha states that she saw her rn cardiac rehab Dr. James last week on Sunday a week ago. Her other medical problems besides COPD include hypothyroidism, chronic paroxysmal atrial fibrillation, anxiety, the. She has history of hypotension and takes fludrocortisone 0.1 mg twice a day. She has history of GERD and takes pantoprazole 40 mg daily. She uses oxygen at home at 2 liters/minute. Apparently the family increased it to 4 L yesterday as her O2 sats were low. 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 This was in the left MCA territory. She apparently has been on doxycycline 100 mg twice a day per Dr. carter recently. She has history of hypercholesterolemia. She is on pravastatin 40 mg daily for this. She has history of congestive heart failure also. MD elicited complaint: shortness of breath Pertinent past history: COPD and congestive heart failure Context: other ( COPD. Chronic nicotine abuse.) Timing: intermittent Severity: moderate Exacerbating factors: other ( Smoking) Relieving factors: oxygen and rest Known history of: COPD and congestive heart failure Associated symptoms: other ( Prabha denies any chest pain. Denies abdominal pain nausea or vomiting.) Treatment prior to arrival: oxygen Related Data Home oxygen amount: 2 liters Home Medications Medication Instructions Recorded Confirmed Centrum Silver 1 tablet PO DAILY 11/22/19 01/23/20 aspirin [Adult Low Dose Aspirin] 81 mg PO DAILY 11/22/19 01/23/20 buspirone 2.5 mg PO BID PRN 11/22/19 01/23/20 coQ10 (ubiquinol) 100 mg PO DAILY 11/22/19 01/23/20 fludrocortisone 0.1 mg PO BID 11/22/19 01/23/20 levothyroxine 50 mcg PO DAILY 11/22/19 01/23/20 midodrine 5 mg PO QID 11/22/19 01/23/20 potassium chloride 20 meq PO DAILY 11/22/19 01/23/20 pravastatin 40 mg PO DAILY 11/22/19 01/23/20 sennosides-docusate sodium 1 tab-cap PO HS 11/22/19 01/23/20 [Senokot-S] Allergies Allergy/AdvReac Type Severity Reaction Status Date / Time Penicillins Allergy Intermediate Verified 11/23/19 00:48 Review of Systems Review of Systems: All systems reviewed & are unremarkable except as noted in HPI and below Constitutional: Constitutional: Reports as per HPI, Reports no additional constitutional complaints, Denies chills and Denies fever(s) Eyes: Eyes: Reports as per HPI, Reports no additional eye complaints and Denies change in vision ENT: Reports system reviewed and no additional complaints, except as documented, Reports as per HPI, Denies dysphagia, Denies vertigo, Denies dizziness, Denies epistaxis, Reports nasal congestion and Denies sore throat Cardiovascular: Cardiovascular: Reports as per HPI, Reports no addition
[2020-01-23] MEDS: IPRATROPIUM 0.5 MG/ALBUTEROL SULFATE 2.5 MG AMPUL.NEB 3 ML INHALATION ×3 (09:55→20:45)
[2020-01-23 10:10] LABS: Base Excess ABG 9.9 mmol/L (0-2); HCO3 ABG 39.6 mmol/L (23-29); Oxygen Content ABG 16.6 %vol (16.0-22.0); Oxygen Saturation ABG 96.4 % (95-97); Oxyhemoglobin 95.1 % (94-100); PO2 ABG 93.4 mmHg (75-85); Total Hemoglobin 12.3 g/dL; pH ABG 7.29 (7.35-7.45)
[2020-01-23 10:12] LABS: Device NASAL CANNULA; Modified Allen's Test Pass; PCO2 ABG 85.1 mmHg (35-45); Site Drawn RIGHT RADIAL
[2020-01-23 10:13] LABS: Basophils Absolute Auto 0.05 K/mm3 (0.00-0.10); Basophils Percent Auto 0.4 % (0.0-1.0); Eosinophils Absolute Auto 0.02 K/mm3 (0.02-0.50); Eosinophils Percent Auto 0.2 % (1.0-6.0); Hematocrit 38.9 % (35.0-42.0); Hemoglobin 11.8 g/dL (11.7-13.8); Immature Granulocyte Absolute 0.12 K/mm3 (0.00-0.00); Lymphocytes Absolute Auto 0.52 K/mm3 (1.10-4.50); Lymphocytes Percent Auto 4.4 % (18.0-42.0); Mean Corpuscular HGB Conc 30.3 g/dL (32.0-36.0); Mean Corpuscular Hemoglobin 25.3 pg (27.0-31.0); Mean Corpuscular Volume 83.5 fL (78.0-102.0); Mean Platelet Volume 9.9 fl (9.2-11.8); Monocytes Absolute Auto 1.17 K/mm3 (0.10-0.90); Monocytes Percent Auto 9.8 % (2.0-11.0); Neutrophils Percent Auto 84.2 % (50.0-70.0); Platelet Count Result 209 K/mm3 (150-420); Red Blood Count 4.66 M/mm3 (4.20-5.40); Red Cell Distribution Width 20.8 % (11.6-14.4); White Blood Count 11.9 K/mm3 (4.8-10.8)
[2020-01-23 10:23] LABS: Add Urine Microscopic? NO; Appearance Urine Clear (Clear); Bilirubin Urine Negative (Negative); Blood Urine Negative (Negative); Glucose Urine UA Negative (Negative); Ketones Urine Negative (Negative); Leukocyte Esterase Ur Negative LEU/UL (Negative); Nitrate Urine Negative (Negative); Protein Urine Negative (Negative); Specific Grav Ur 1.015 (1.010-1.020); Urobilinogen Urine 0.2 mg/dL (0.2-1.0)
[2020-01-23 10:26] LABS: Partial Thromboplastin Time 26.8 SEC (22.3-31.6); Prothrombin Time 10.8 Seconds (9.64-11.0)
[2020-01-23 10:26] LABS: Color Urine Yellow (Yellow)
[2020-01-23 10:27] LABS: BNP 403 pg/mL (0-100)
[2020-01-23 10:38] LABS: Alanine Aminotransferase 22 U/L (14-59); Albumin Level 3.3 g/dL (3.4-5.0); Alkaline Phosphatase 83 U/L (46-116); Anion Gap 8.7 mmol/L (7-16); Aspartate Amino Transferase 27 U/L (15-37); Bilirubin,Total 0.4 mg/dL (0.00-1.00); Blood Urea Nitrogen 11 mg/dL (7-18); CRP 2.6 mg/dL (0.0-0.9); Calcium 8.8 mg/dL (8.5-10.1); Carbon Dioxide 39 mmol/L (21-32); Chloride 96 mmol/L (98-108); Creatine Kinase 21 U/L (26-192); Estimated CRCL calculation 38 ml/min; Estimated Glomerular Filt Rate > 60; Glucose 156 mg/dL (70-99); Magnesium 1.8 mg/dL (1.8-2.4); Osmolality Calculated 292 mOsm/kg (285-295); Potassium 3.7 mmol/L (3.5-5.1); Sodium 140 mmol/L (136-145); Thyroid Stimulating Hormone 1.97 uIU/mL (0.36-3.74); Total Protein 6.9 g/dL (6.4-8.2); Troponin I 0.02 ng/mL (0.00-0.056)
[2020-01-23 10:41] LABS: Digoxin 0.9 ng/mL (0.9-2.0)
[2020-01-23 10:41] LABS: Influenza Control Valid (Valid)
[2020-01-23 10:45] LABS: Lactic Acid 1.4 mmol/L (0.4-2.0)
--- NOTE | 2020-01-23 10:45 | PC.NURSE ---
REPORT TO BELINDA DEMPSEY
[2020-01-23] MEDS: levoFLOXacin 500 MG/D5W 100 ML 500 MG/100 ML BAG 100 MG IVPB (11:03)
[2020-01-23 11:15] LABS: Erythrocyte Sedimentation Rate 15 mm/hr (0-20)
--- NOTE | 2020-01-23 13:42 | PM.IMHP ---
H&P: HPI History of Present Illness Chief complaint: trouble Breathing Narrative: Prabha St is a 84 year old female THAT PRESENTED TO ED TODAY WITH COMPLAINTS OF SHORTNESS OF BREATH AND DYSPNEA PATIENT HAS A PAST MEDICAL HISTORY OF CHRONIC AFIB, DIVERTICULITIS, DYSPHAGIA, ESOPHAGEAL DILATION, ESOPHAGEAL STRICTURE, HYPOTHYROIDISM, ANXIETY, HYPOTENSION, FOREIGN BODY ASPIRATION, FRACTURE OF THE RIGHT HIP REQUIRING OPERATIVE REPAIR, GERD, CVA, HISTORY OF HIP FRACTURE, HYPERLIPIDEMIA, COPDAND LOWER GI BLEED. ACCORDING TO THE PATIENT FOR THE LAST 2 DAYS SHE HAS BEEN HAVING INCREASED SHORTNESS OF BREATH. PATIENT DOES REQUIRE 2.5 L OF OXYGEN AT NIGHT P.R.N. SHE ALSO HAS HISTORY NICOTINE DEPENDENCE. ACCORDING TO THE PATIENT SHE HAS NOT BEEN COUGHING BUT HAS HAD A SUBJECTIVE FEVER AND HAS A DECREASED APPETITE WITH FATIGUE. SHE ALSO NOTED THAT HER RECENTLY IN THAT SHE IS STILL GRIEVING. PATIENT DOES NOT WANT ANY ANTIDEPRESSANT MEDICATION. INFORMED PATIENT THAT SHE FELT LIKE SHE NEEDED IN THE FUTURE TO CONTACT HER PCP TO GET A PRESCRIPTION FOR ANTIDEPRESSANT MEDICATION. PATIENT VITAL SIGNS ARE 129/81, 91 100% ON 2 L NASAL CANNULA AND 36.2. PATIENT DOES HAVE A HISTORY OF CHRONIC AFIB BUT ACCORDING TO HER CHART FROM DR. Cage OFFICE SHE ONLY TAKES ASPIRIN 21 MG DUE TO HER HIGH RISK FOR FALLS. SHE ALSO TAKE DIGOXIN 125 MCG DAILY. SHE DID JUST HAVE A VISIT WITH DR. JONEL JAMES HER [facility]ARR[facility] LAST WEEK. PATIENT WHITE BLOOD CELL COUNT ON ADMISSION IS 11.9 SLIGHTLY ELEVATED ABGS PH 7.29 PCO2 85.1 PO2 93.4 AND BICARB IS 39.6. EKG INDICATES AFIB, CHEST X-RAY INDICATES-Small pleural effusions AND Chronic hyperinflation and emphysema. PATIENT INFLUENZA WAS NEGATIVE HER C REACTIVE IN WAS ELEVATED AT 2.6 AND BNP AT 403. WHILE IN THE ED PATIENT WAS GIVEN LEVAQUIN AND BREATHING TREATMENT. WE WILL CONTINUE TO GIVE PATIENT ANTIBIOTIC LEVAQUIN WITH BREATHING TREATMENT AND ADD STEROIDS. PATIENT DENIES CP, PALPITATION, EXTREMITY NUMBNESS, LIGHTHEADNESS, DIZZINESS, DIARRHEA, OR CHILLS OR FEVER. PATIENT AGREE THAT THEY ARE READY FOR DISCHARGE AND DISCHARGE PLAN. SHE DOES COMPLAIN OF CONSTIPATION. Review of Systems Constitutional: Constitutional: Reports fatigue and Reports weakness Cardiovascular: Cardiovascular: Reports no additional cardiovascular complaints, Denies chest pain at rest, Denies chest pain with activity, Denies leg edema, Denies lightheadedness, Denies dyspnea, Reports dyspnea on exertion and Reports orthopnea Respiratory: Respiratory: Denies cough, Reports dyspnea and Reports dyspnea on exertion Gastrointestinal: Gastrointestinal: Reports constipation, Denies nausea and Denies vomiting Genitourinary: Genitourinary: Reports no additional female genitourinary complaints Musculoskeletal: Musculoskeletal: Reports no additional musculoskeletal complaints and Denies muscle weakness Integumentary/Breasts: Skin/Breast: Reports system reviewed and no additional complaints, except as docu, Denies lesions, Denies rash and Denies sores Neurologic: Reports system reviewed and no additional complaints, except as documented, Denies confusion, Denies vertigo, Denies dizziness, Denies syncope and Denies tingling Psychiatric: Psychiatric: Denies anxiety, Denies confusion and Reports other ( RECENT 'S IN [place]) [facility] Past Medical History Medical History (Updated 01/23/20 @ 14:26 by SHU Calzada) Chronic a-fib Diverticulitis Dysphagia Esophageal dilatation Esophageal stricture Foreign body aspiration Fracture of right hip requiring operative repair GERD (gastroesophageal reflux disease) H/O: CVA (cerebrovascular accident) History of hip fracture Hyperlipidemia Lower GI bleed Surgical History Surgical History (Updated 01/23/20 @ 10:25 by Amado Torrez MD) History of hysterectomy Social History Social History Smoking packs pe
[2020-01-23 14:01] LABS: Base Excess ABG 12.2 mmol/L (0-2); HCO3 ABG 40.1 mmol/L (23-29); Oxygen Content ABG 14.8 %vol (16.0-22.0); Oxygen Saturation ABG 92.4 % (95-97); Oxyhemoglobin 91.8 % (94-100); PO2 ABG 65.5 mmHg (75-85); Total Hemoglobin 11.4 g/dL; pH ABG 7.37 (7.35-7.45)
[2020-01-23 14:04] LABS: PCO2 ABG 71.3 mmHg (35-45)
[2020-01-23 14:05] LABS: Device NASAL CANNULA; Modified Allen's Test Pass; Site Drawn RIGHT RADIAL
[2020-01-23] MEDS: MIDODRINE HCL 2.5 MG TABLET 5 MG PO ×3 (14:20→20:45)
[2020-01-23] MEDS: FLUDROCORTISONE ACETATE 0.1 MG TABLET PO (16:33)
[2020-01-23] MEDS: methylPREDNISolone SOD SUCC 125 MG VIAL IV PUSH (20:45)
[2020-01-23] MEDS: SENNA/DOCUSATE SODIUM TABLET 1 TAB PO (20:45)
[2020-01-24] VITALS (17 sets, daily range): BP systolic 119–160; BP diastolic 68–86; PULSE 82–103; RESP 20–36; TEMP 36.3–36.6; O2SAT 70–96
[2020-01-24] MEDS: LORAZEPAM INJ 2 MG/ML VIAL 0.5 MG IV PUSH ×2 (00:12→07:40)
--- NOTE | 2020-01-24 00:35 | PC.NURSE ---
7423 Pt's daughter, Tyesha St called and inquired about how pt was doing. Report was given and Tyesha requested pt be given Ativan to calm her down and she said that she wanted the biPap restarted. Tyesha said we could call her at [phone] if we needed to talk to her.
--- NOTE | 2020-01-24 00:51 | PC.NURSE ---
0012 Pt given 0.5 mg IVP given and bipap was started.
--- NOTE | 2020-01-24 00:56 | PC.NURSE ---
0040 Dr. Torrez notified of pt's family calling about pt and their request for ativan to be given and the biPap restarted. Orders for continous pulse oximetry noted.
--- NOTE | 2020-01-24 01:10 | PC.NURSE ---
Bi pap in place 4L o2.
--- NOTE | 2020-01-24 01:15 | PC.NURSE ---
Resting quietly. Bi pap continues. Telemetry continues. Spo2 95%.
--- NOTE | 2020-01-24 02:50 | PC.NURSE ---
Sleeping, Bipap continues. Telemetry continues. S<del>po2</del> <del>94%</del>
--- NOTE | 2020-01-24 04:32 | PC.NURSE ---
Sleeping, telemetry A fib Bi pap continues. Spo2 95%.
--- NOTE | 2020-01-24 05:10 | PC.NURSE ---
Lab here. Bipap continues.
[2020-01-24 05:47] LABS: Basophils Absolute Auto 0.01 K/mm3 (0.00-0.10); Basophils Percent Auto 0.2 % (0.0-1.0); Hematocrit 37.7 % (35.0-42.0); Hemoglobin 11.3 g/dL (11.7-13.8); Immature Granulocyte Absolute 0.04 K/mm3 (0.00-0.00); Immature Granulocyte Percent A 0.8 % (0.0-0.0); Lymphocytes Percent Auto 5.9 % (18.0-42.0); Mean Corpuscular Hemoglobin 24.9 pg (27.0-31.0); Mean Platelet Volume 10.3 fl (9.2-11.8); Monocytes Absolute Auto 0.09 K/mm3 (0.10-0.90); Monocytes Percent Auto 1.8 % (2.0-11.0); Neutrophils Absolute Auto 4.7 K/mm3 (1.7-7.2); Neutrophils Percent Auto 91.3 % (50.0-70.0); Platelet Count Result 205 K/mm3 (150-420); Red Blood Count 4.54 M/mm3 (4.20-5.40); Red Cell Distribution Width 20.5 % (11.6-14.4); White Blood Count 5.1 K/mm3 (4.8-10.8)
[2020-01-24] MEDS: methylPREDNISolone SOD SUCC 125 MG VIAL IV PUSH ×3 (06:00→21:02)
[2020-01-24 06:03] LABS: Alanine Aminotransferase 21 U/L (14-59); Albumin Level 3.1 g/dL (3.4-5.0); Alkaline Phosphatase 83 U/L (46-116); Aspartate Amino Transferase 23 U/L (15-37); Bilirubin,Total 0.2 mg/dL (0.00-1.00); Blood Urea Nitrogen 13 mg/dL (7-18); Calcium 9.3 mg/dL (8.5-10.1); Carbon Dioxide 40 mmol/L (21-32); Chloride 100 mmol/L (98-108); Estimated CRCL calculation 41 ml/min; Estimated Glomerular Filt Rate > 60; Glucose 167 mg/dL (70-99); Osmolality Calculated 300 mOsm/kg (285-295); Sodium 143 mmol/L (136-145); Total Protein 6.6 g/dL (6.4-8.2)
[2020-01-24 06:06] LABS: BNP 391 pg/mL (0-100)
--- NOTE | 2020-01-24 06:06 | PC.NURSE ---
Pt given solumederol 125 mg IVP as ordered.
--- NOTE | 2020-01-24 06:34 | PC.NURSE ---
Sleeping. Bi pap continues. Sp02 94%.
--- NOTE | 2020-01-24 07:40 | PC.NURSE ---
Patient soiled depends. Pericare provided, clean depend applied. Patient turned and repositioned in bed to left side. Pt. appearing very restless and anxious. Pulling Bipap mask off. 02 sat drops to 88-89 when restless/pulling off mask. Ativan given per order. Patient resting quietly after ativan given. Call light at side.
--- NOTE | 2020-01-24 08:20 | PC.NURSE ---
Patient sleeping restfully with bipap on. No distress noted.
[2020-01-24 08:53] LABS: Troponin I 0.02 ng/mL (0.00-0.056)
--- NOTE | 2020-01-24 09:45 | PC.NURSE ---
Patient resting quietly in bed with hob elevated. Bi-pap continue on per order. Patient very sleepy. Alert to self only. Unable to swallow medications at this time. All oral medication held.
--- NOTE | 2020-01-24 10:40 | PC.NURSE ---
Patient repositioned to back, hob remains elevated. Bi-pap continue on per orders. Resting quietly.
--- NOTE | 2020-01-24 10:47 | P.PNIM_ITS ---
Progress Note: A&P Assessment and Plan (1) COPD exacerbation: Code(s): J44.1 - Chronic obstructive pulmonary disease with (acute) exacerbation Status: Acute Assessment and Plan: * CONTINUE LEVAQUIN * CONTINUE NEBULIZER TREATMENT * WILL START INCENTIVE SPIROMETER * WILL START SOLU-MEDROL * CHEST X-RAY INDICATES Chronic hyperinflation and emphysema. * INFLUENZA NEGATIVE * C REACTIVE SLIGHTLY ELEVATED 2.6 * PATIENT CURRENTLY ON BIPAP, WHEN SHE BECOMES ATTEMPT HIGH-FLOW AFTER WERE NASAL CANNULA TO KEEP SATS ABOVE 92% * REPEAT ABG PENDING (2) Atrial fibrillation, chronic: Code(s): I48.20 - Chronic atrial fibrillation, unspecified Status: Acute Assessment and Plan: * CONTROLLED * PATIENT HIGH FALL RISK. ON ANY LONG-TERM ANTICOAGULANT. TAKES 80 MG ASPIRIN DAILY * WILL PUT PATIENT LOVENOX WHILE SHE IS HERE PRECAUTIONS FOR HIGH FALL WRIST * EKG INDICATES AFIB WITH HEART RATE OF 96 * CONTINUE TELEMETRY * CONTINUE DIGOXIN 125 MCG * DIGOXIN LEVEL 0.9 (3) Chronic orthostatic hypotension: Code(s): I95.1 - Orthostatic hypotension Status: Acute Assessment and Plan: * STABLE * BLOOD PRESSURE 149/75 * CONTINUE MIDODRINE * CONTINUE FALL PRECAUTION * MONITOR VITAL SIGNS IS ORDERED (4) H/O: CVA (cerebrovascular accident): Code(s): Z86.73 - Personal history of transient ischemic attack (TIA), and cerebral infarction without residual deficits Status: Acute Assessment and Plan: * NO RESIDUAL NOTED * STABLE (5) GERD (gastroesophageal reflux disease): Code(s): K21.9 - Gastro-esophageal reflux disease without esophagitis Status: Acute Assessment and Plan: * STARTED PROTONIX (6) DVT prophylaxis: Code(s): Z29.9 - Encounter for prophylactic measures, unspecified Status: Acute Assessment and Plan: STARTED LOVENOX (7) Metabolic alkalosis with respiratory acidosis: Code(s): E87.4 - Mixed disorder of acid-base balance Status: Acute Assessment and Plan: * IMPROVING * ADMISSION PCO2 85.1, REPEAT 71.3 * REPEEAT PENDING * CONTINUE OXYGEN SUPPLEMENT * LACTIC ACID NEGATIVE * CONT BIPAP AND REPEAT BLOOD GAS (8) Elevated brain natriuretic peptide (BNP) level: Code(s): R79.89 - Other specified abnormal findings of blood chemistry Status: Acute Assessment and Plan: * BNP ON ADMISSION 403 TODAY IMPROVED * IT APPEARS THAT HER BASELINE BNP MIGHT POSSIBLY BE IN THE UPPER 300S ACCORDING TO THE LAB ON 11/30 BNP WAS 394 * DOES NOT DISPLAY ANY SIGNS AND SYMPTOMS OF CONGESTIVE HEART FAILURE (9) Hypothyroidism: Code(s): E03.9 - Hypothyroidism, unspecified Status: Acute Assessment and Plan: * TSH 1.97 * CONTINUE SYNTHROID Subjective Date/time seen: 01/24/20 10:47 PATIENT CURRENTLY IN BED SEDATED DUE TO USE OF ATIVAN WITH BIPAP IN PLACE. DID ATTEMPT TO TAKE BIPAP OFF PATIENT ,SATS IN THE UPPER 80S LOWER 90 WITH 4 L NASAL CANNULA. BIPAP PLACED BACK ON PATIENT UNTIL SHE BECOMES MORE ALERT. REPEAT BLOOD GAS PENDING. ONCE PATIENT IS OFF BIPAP WE WILL PLACE PATIENT ON HIGH-FLOW TO KEEP SATS ABOVE 92%. STARTED MAINTENANCE IV FLUID PATIENT SHE BECOMES MORE ALERT. WILL CLOSELY MONITOR PATIENT'S. IF HER MENTAL STATUS IS NOT IMPROVED WILL COMPLETE A CT OF THE HEAD. Review of Systems Review of Systems: ROS unobtainable: unobtainable due to mental status ( PATIENT CURRENTLY RECEIVED ATIVAN AND REMAINS SEDATED) Exam
--- NOTE | 2020-01-24 10:47 | PM.IMPN ---
Progress Note: A&P Assessment and Plan (1) COPD exacerbation: Code(s): J44.1 - Chronic obstructive pulmonary disease with (acute) exacerbation Status: Acute Assessment and Plan: CONTINUE LEVAQUIN CONTINUE NEBULIZER TREATMENT WILL START INCENTIVE SPIROMETER WILL START SOLU-MEDROL CHEST X-RAY INDICATES Chronic hyperinflation and emphysema. INFLUENZA NEGATIVE C REACTIVE SLIGHTLY ELEVATED 2.6 PATIENT CURRENTLY ON BIPAP, WHEN SHE BECOMES ATTEMPT HIGH-FLOW AFTER WERE NASAL CANNULA TO KEEP SATS ABOVE 92% REPEAT ABG PENDING (2) Atrial fibrillation, chronic: Code(s): I48.20 - Chronic atrial fibrillation, unspecified Status: Acute Assessment and Plan: CONTROLLED PATIENT HIGH FALL RISK. ON ANY LONG-TERM ANTICOAGULANT. TAKES 80 MG ASPIRIN DAILY WILL PUT PATIENT LOVENOX WHILE SHE IS HERE PRECAUTIONS FOR HIGH FALL WRIST EKG INDICATES AFIB WITH HEART RATE OF 96 CONTINUE TELEMETRY CONTINUE DIGOXIN 125 MCG DIGOXIN LEVEL 0.9 (3) Chronic orthostatic hypotension: Code(s): I95.1 - Orthostatic hypotension Status: Acute Assessment and Plan: STABLE BLOOD PRESSURE 149/75 CONTINUE MIDODRINE CONTINUE FALL PRECAUTION MONITOR VITAL SIGNS IS ORDERED (4) H/O: CVA (cerebrovascular accident): Code(s): Z86.73 - Personal history of transient ischemic attack (TIA), and cerebral infarction without residual deficits Status: Acute Assessment and Plan: NO RESIDUAL NOTED STABLE (5) GERD (gastroesophageal reflux disease): Code(s): K21.9 - Gastro-esophageal reflux disease without esophagitis Status: Acute Assessment and Plan: STARTED PROTONIX (6) DVT prophylaxis: Code(s): Z29.9 - Encounter for prophylactic measures, unspecified Status: Acute Assessment and Plan: STARTED LOVENOX (7) Metabolic alkalosis with respiratory acidosis: Code(s): E87.4 - Mixed disorder of acid-base balance Status: Acute Assessment and Plan: IMPROVING ADMISSION PCO2 85.1, REPEAT 71.3 REPEEAT PENDING CONTINUE OXYGEN SUPPLEMENT LACTIC ACID NEGATIVE CONT BIPAP AND REPEAT BLOOD GAS (8) Elevated brain natriuretic peptide (BNP) level: Code(s): R79.89 - Other specified abnormal findings of blood chemistry Status: Acute Assessment and Plan: BNP ON ADMISSION 403 TODAY IMPROVED IT APPEARS THAT HER BASELINE BNP MIGHT POSSIBLY BE IN THE UPPER 300S ACCORDING TO THE LAB ON 11/30 BNP WAS 394 DOES NOT DISPLAY ANY SIGNS AND SYMPTOMS OF CONGESTIVE HEART FAILURE (9) Hypothyroidism: Code(s): E03.9 - Hypothyroidism, unspecified Status: Acute Assessment and Plan: TSH 1.97 CONTINUE SYNTHROID Subjective Date/time seen: 01/24/20 10:47 PATIENT CURRENTLY IN BED SEDATED DUE TO USE OF ATIVAN WITH BIPAP IN PLACE. DID ATTEMPT TO TAKE BIPAP OFF PATIENT ,SATS IN THE UPPER 80S LOWER 90 WITH 4 L NASAL CANNULA. BIPAP PLACED BACK ON PATIENT UNTIL SHE BECOMES MORE ALERT. REPEAT BLOOD GAS PENDING. ONCE PATIENT IS OFF BIPAP WE WILL PLACE PATIENT ON HIGH-FLOW TO KEEP SATS ABOVE 92%. STARTED MAINTENANCE IV FLUID PATIENT SHE BECOMES MORE ALERT. WILL CLOSELY MONITOR PATIENT'S. IF HER MENTAL STATUS IS NOT IMPROVED WILL COMPLETE A CT OF THE HEAD. Review of Systems Review of Systems: ROS unobtainable: unobtainable due to mental status ( PATIENT CURRENTLY RECEIVED ATIVAN AND REMAINS SEDATED) Exam Narrative: Exam Narrative: GENERAL: A WELL-DEVELOPED, WELL-NOURISHED MALE SITTING UP IN BED NO ACUTE DISTRESS. HEENT: NORMOCEPHALIC, ATRAUMATIC. PERRL, EOMI. SCLERAE ANICTERIC. ORAL MUCOSA MOIST. OROPHARYNX CLEAR. NECK: SUPPLE. CARDIOVASCULAR: REGULAR RATE WITH IRREGULAR RHYTHM GASTROINTESTINAL: ABDOMEN IS SOFT, NONTENDER, AND NONDISTENDED WITH POSITIVE BOWEL SOUNDS. NO ORGANOMEGALY. SKIN: WARM, DRY, AND SLIGHTLY PALE.. NO RASH OR LESIONS ON LIMITED EXAM.
[2020-01-24 11:06] LABS: Base Excess ABG 14.5 mmol/L (0-2); HCO3 ABG 43.6 mmol/L (23-29); Oxygen Saturation ABG 93.5 % (95-97); Oxyhemoglobin 92.2 % (94-100); PO2 ABG 70.8 mmHg (75-85); Total Hemoglobin 12.3 g/dL; pH ABG 7.35 (7.35-7.45)
[2020-01-24 11:07] LABS: Device BIPAP; Modified Allen's Test Unable to perform; Site Drawn LEFT RADIAL
[2020-01-24 11:09] LABS: PCO2 ABG 80.9 mmHg (35-45)
[2020-01-24 11:10] LABS: Expiratory Pressure 4 cmH2O; Inspiratory Pressure 8 cmH2O
[2020-01-24] MEDS: levoFLOXacin 500 MG/D5W 100 ML 500 MG/100 ML BAG 100 MG IVPB (11:39)
[2020-01-24] MEDS: SODIUM CHLORIDE 0.9% IV 500 ML 900 ML IV CONT (12:50)
--- NOTE | 2020-01-24 12:50 | PC.NURSE ---
Patient taken off Bi-pap and started on HiFlo 02 At 40L 02 and 40% Fio2. Patient tolerating Hiflo well. Patient more alert, able to answer yes and no questions. Resting with hob elevated. Call light and belongings at side.
[2020-01-24] MEDS: SODIUM CHLORIDE 0.9% IV 1,000 ML 75 ML IV CONT (13:30)
[2020-01-24] MEDS: IPRATROPIUM 0.5 MG/ALBUTEROL SULFATE 2.5 MG AMPUL.NEB 3 ML INHALATION ×2 (13:43→19:52)
--- NOTE | 2020-01-24 16:35 | PC.NURSE ---
Patient resting quietly in bed with hob elevated. HiFlo 02 at 40l and 40% Fi02 on per order. No distress noted. Call light at side.
[2020-01-24] MEDS: MIDODRINE HCL 2.5 MG TABLET 5 MG PO ×2 (16:51→21:01)
[2020-01-24] MEDS: FLUDROCORTISONE ACETATE 0.1 MG TABLET PO (16:51)
--- NOTE | 2020-01-24 19:15 | PC.NURSE ---
Dr. Barrow contacted about patients 02 sats. 02 sat lynda sustaining 77-82%. Patient labored breathing. Dr. Barrow ordered Bipap to be placed back on patient at 8 and 4 with 4L of 02 bled in. Patient 02 sat increased to 95% with Bi pap applied. Patient tolerating bi pap well at present. Denies any needs at this time.
[2020-01-24] MEDS: SENNA/DOCUSATE SODIUM TABLET 1 TAB PO (21:01)
--- NOTE | 2020-01-24 22:18 | PM.EVENT ---
Event Note Event Note Event Note: Patient was obtunded on exam this morning on unable to give any history. She has been on BPAP 06/15 with 4 L overnight and had some improvement in her pCO2. she had 2.5 mg doses of Ativan last night. She was off briefly and then placed back on the BiPAP and her pCO2 began to climb. During the daytime she was switched over to high-flow nasal oxygen, 40 liters/minute at 40% and seemed to tolerated quite well. She became much more alert and actually ate a meal. Lung sounds diminished with modest increased work of breathing. Few late expiratory wheezes. Regular rhythm with some mild tachycardia and no murmur. Distal pulses are full and symmetric in hands and feet are warm and pink and dry. It be prudent to put her back on the CPAP tonight given the improvement she had last night. Will use Ativan only if required. I have examined the patient reviewed the chart. I discussed the patient's care with Cuate Lopez APN and agree with her assessment and plan.
[2020-01-25] VITALS (12 sets, daily range): BP systolic 138–183; BP diastolic 65–91; PULSE 79–98; RESP 20–27; TEMP 36.1–36.9; O2SAT 88–99
--- NOTE | 2020-01-25 02:40 | PC.NURSE ---
pt assisted with bedpan, voided clear yellow urine, depend was wet as well, jackie care provided, new depend put on, pt refused to turn to side, denies any other needs
[2020-01-25] MEDS: methylPREDNISolone SOD SUCC 125 MG VIAL IV PUSH ×3 (05:09→21:25)
[2020-01-25 06:11] LABS: Basophils Absolute Auto 0.01 K/mm3 (0.00-0.10); Basophils Percent Auto 0.2 % (0.0-1.0); Hematocrit 38.8 % (35.0-42.0); Hemoglobin 11.2 g/dL (11.7-13.8); Immature Granulocyte Percent A 1.7 % (0.0-0.0); Lymphocytes Absolute Auto 0.37 K/mm3 (1.10-4.50); Lymphocytes Percent Auto 6.3 % (18.0-42.0); Mean Corpuscular HGB Conc 28.9 g/dL (32.0-36.0); Mean Corpuscular Hemoglobin 24.3 pg (27.0-31.0); Mean Corpuscular Volume 84.3 fL (78.0-102.0); Mean Platelet Volume 10.4 fl (9.2-11.8); Monocytes Percent Auto 5.1 % (2.0-11.0); Neutrophils Absolute Auto 5.1 K/mm3 (1.7-7.2); Neutrophils Percent Auto 86.7 % (50.0-70.0); Platelet Count Result 194 K/mm3 (150-420); Red Cell Distribution Width 20.5 % (11.6-14.4); White Blood Count 5.8 K/mm3 (4.8-10.8)
[2020-01-25 06:41] LABS: BNP 289 pg/mL (0-100)
[2020-01-25 06:45] LABS: Alanine Aminotransferase 26 U/L (14-59); Albumin Level 2.9 g/dL (3.4-5.0); Alkaline Phosphatase 68 U/L (46-116); Anion Gap 5.6 mmol/L (7-16); Aspartate Amino Transferase 29 U/L (15-37); Bilirubin,Total 0.2 mg/dL (0.00-1.00); Blood Urea Nitrogen 17 mg/dL (7-18); CRP 1.5 mg/dL (0.0-0.9); Calcium 8.5 mg/dL (8.5-10.1); Carbon Dioxide 41 mmol/L (21-32); Chloride 102 mmol/L (98-108); Estimated CRCL calculation 44 ml/min; Estimated Glomerular Filt Rate > 60; Glucose 151 mg/dL (70-99); Osmolality Calculated 302 mOsm/kg (285-295); Potassium 4.6 mmol/L (3.5-5.1); Sodium 144 mmol/L (136-145); Total Protein 5.9 g/dL (6.4-8.2); Troponin I 0.04 ng/mL (0.00-0.056)
[2020-01-25 06:59] LABS: Lactic Acid 1.1 mmol/L (0.4-2.0)
[2020-01-25] MEDS: levoFLOXacin 500 MG/D5W 100 ML 500 MG/100 ML BAG 100 MG IVPB (08:53)
[2020-01-25] MEDS: MIDODRINE HCL 2.5 MG TABLET 5 MG PO ×4 (09:00→20:18)
[2020-01-25] MEDS: THERAPEUTIC MULTIVITAMINS/MINERALS TAB (*BKC) 1 TABLET PO (09:00)
[2020-01-25] MEDS: LEVOTHYROXINE SODIUM 50 MCG TABLET PO (09:00)
[2020-01-25] MEDS: PRAVASTATIN SODIUM 20 MG TABLET 40 MG PO (09:00)
[2020-01-25] MEDS: FUROSEMIDE 40 MG TABLET PO (09:00)
[2020-01-25] MEDS: PANTOPRAZOLE 40 MG TABLET PO (09:01)
[2020-01-25] MEDS: ASPIRIN 81 MG ENTERIC TABLET PO (09:01)
[2020-01-25] MEDS: DIGOXIN TAB 125 MCG TABLET PO (09:02)
[2020-01-25] MEDS: POTASSIUM CHLORIDE 20 MEQ TABLET PO (09:02)
[2020-01-25] MEDS: FLUDROCORTISONE ACETATE 0.1 MG TABLET PO ×2 (09:03→17:10)
--- NOTE | 2020-01-25 10:21 | P.PNIM_ITS ---
Progress Note: A&P Assessment and Plan (1) COPD exacerbation: Code(s): J44.1 - Chronic obstructive pulmonary disease with (acute) exacerbation Status: Acute Assessment and Plan: * CONTINUE LEVAQUIN * CONTINUE NEBULIZER TREATMENT * WILL START INCENTIVE SPIROMETER * WILL START SOLU-MEDROL * CHEST X-RAY INDICATES Chronic hyperinflation and emphysema. * INFLUENZA NEGATIVE * C REACTIVE SLIGHTLY ELEVATED 2.6 * PATIENT on BiPAP overnight she is currently on 4 L nasal cannula * CO2 worsened use BiPAP, repeat blood gas pending today (2) Atrial fibrillation, chronic: Code(s): I48.20 - Chronic atrial fibrillation, unspecified Status: Acute Assessment and Plan: * CONTROLLED * PATIENT HIGH FALL RISK. ON ANY LONG-TERM ANTICOAGULANT. TAKES 80 MG ASPIRIN DAILY * WILL PUT PATIENT LOVENOX WHILE SHE IS HERE PRECAUTIONS FOR HIGH FALL WRIST * EKG INDICATES AFIB WITH HEART RATE OF 96 * CONTINUE TELEMETRY * CONTINUE DIGOXIN 125 MCG * DIGOXIN LEVEL 0.9 (3) Chronic orthostatic hypotension: Code(s): I95.1 - Orthostatic hypotension Status: Acute Assessment and Plan: * STABLE * BLOOD PRESSURE 138/77 * CONTINUE MIDODRINE * CONTINUE FALL PRECAUTION * MONITOR VITAL SIGNS IS ORDERED (4) H/O: CVA (cerebrovascular accident): Code(s): Z86.73 - Personal history of transient ischemic attack (TIA), and cerebral infarction without residual deficits Status: Acute Assessment and Plan: * NO RESIDUAL NOTED * STABLE (5) GERD (gastroesophageal reflux disease): Code(s): K21.9 - Gastro-esophageal reflux disease without esophagitis Status: Acute Assessment and Plan: * STARTED PROTONIX (6) DVT prophylaxis: Code(s): Z29.9 - Encounter for prophylactic measures, unspecified Status: Acute Assessment and Plan: STARTED LOVENOX (7) Metabolic alkalosis with respiratory acidosis: Code(s): E87.4 - Mixed disorder of acid-base balance Status: Acute Assessment and Plan: * IMPROVING * ADMISSION PCO2 85.1, REPEAT 71.3 repeat post BiPAP 80.3 today blood gas pending * REPEEAT PENDING * CONTINUE OXYGEN SUPPLEMENT * LACTIC ACID NEGATIVE * CONT BIPAP AND REPEAT BLOOD GAS (8) Elevated brain natriuretic peptide (BNP) level: Code(s): R79.89 - Other specified abnormal findings of blood chemistry Status: Acute Assessment and Plan: * BNP ON ADMISSION 403 TODAY IMPROVED * IT APPEARS THAT HER BASELINE BNP MIGHT POSSIBLY BE IN THE UPPER 300S ACCORDING TO THE LAB ON 11/30 BNP WAS 394 * DOES NOT DISPLAY ANY SIGNS AND SYMPTOMS OF CONGESTIVE HEART FAILURE (9) Hypothyroidism: Code(s): E03.9 - Hypothyroidism, unspecified Status: Acute Assessment and Plan: * TSH 1.97 * CONTINUE SYNTHROID Subjective Date/time seen: 01/25/20 10:21 patient is currently in bed with 4 L nasal cannula in place with labored breathing. She is a lot more alert than she was yesterday. She has no complaints at this time but she is pierced lip breathing and labored breathing is present. I will discuss palliative care with this patient today. repeat blood gas pending . Patient denies , CP, palpitation, extremity numbness, lightheadness, dizziness, constipation, diarrhea, chills or fever. Review of Systems Constitutional: Constitutional: Reports fatigue and Reports weakness ENT: Denies vertigo and Denies dizziness Cardiovascular: Cardiovascular: Repor
--- NOTE | 2020-01-25 10:21 | PM.IMPN ---
Progress Note: A&P Assessment and Plan (1) COPD exacerbation: Code(s): J44.1 - Chronic obstructive pulmonary disease with (acute) exacerbation Status: Acute Assessment and Plan: CONTINUE LEVAQUIN CONTINUE NEBULIZER TREATMENT WILL START INCENTIVE SPIROMETER WILL START SOLU-MEDROL CHEST X-RAY INDICATES Chronic hyperinflation and emphysema. INFLUENZA NEGATIVE C REACTIVE SLIGHTLY ELEVATED 2.6 PATIENT on BiPAP overnight she is currently on 4 L nasal cannula CO2 worsened use BiPAP, repeat blood gas pending today (2) Atrial fibrillation, chronic: Code(s): I48.20 - Chronic atrial fibrillation, unspecified Status: Acute Assessment and Plan: CONTROLLED PATIENT HIGH FALL RISK. ON ANY LONG-TERM ANTICOAGULANT. TAKES 80 MG ASPIRIN DAILY WILL PUT PATIENT LOVENOX WHILE SHE IS HERE PRECAUTIONS FOR HIGH FALL WRIST EKG INDICATES AFIB WITH HEART RATE OF 96 CONTINUE TELEMETRY CONTINUE DIGOXIN 125 MCG DIGOXIN LEVEL 0.9 (3) Chronic orthostatic hypotension: Code(s): I95.1 - Orthostatic hypotension Status: Acute Assessment and Plan: STABLE BLOOD PRESSURE 138/77 CONTINUE MIDODRINE CONTINUE FALL PRECAUTION MONITOR VITAL SIGNS IS ORDERED (4) H/O: CVA (cerebrovascular accident): Code(s): Z86.73 - Personal history of transient ischemic attack (TIA), and cerebral infarction without residual deficits Status: Acute Assessment and Plan: NO RESIDUAL NOTED STABLE (5) GERD (gastroesophageal reflux disease): Code(s): K21.9 - Gastro-esophageal reflux disease without esophagitis Status: Acute Assessment and Plan: STARTED PROTONIX (6) DVT prophylaxis: Code(s): Z29.9 - Encounter for prophylactic measures, unspecified Status: Acute Assessment and Plan: STARTED LOVENOX (7) Metabolic alkalosis with respiratory acidosis: Code(s): E87.4 - Mixed disorder of acid-base balance Status: Acute Assessment and Plan: IMPROVING ADMISSION PCO2 85.1, REPEAT 71.3 repeat post BiPAP 80.3 today blood gas pending REPEEAT PENDING CONTINUE OXYGEN SUPPLEMENT LACTIC ACID NEGATIVE CONT BIPAP AND REPEAT BLOOD GAS (8) Elevated brain natriuretic peptide (BNP) level: Code(s): R79.89 - Other specified abnormal findings of blood chemistry Status: Acute Assessment and Plan: BNP ON ADMISSION 403 TODAY IMPROVED IT APPEARS THAT HER BASELINE BNP MIGHT POSSIBLY BE IN THE UPPER 300S ACCORDING TO THE LAB ON 1/19 BNP WAS 394 DOES NOT DISPLAY ANY SIGNS AND SYMPTOMS OF CONGESTIVE HEART FAILURE (9) Hypothyroidism: Code(s): E03.9 - Hypothyroidism, unspecified Status: Acute Assessment and Plan: TSH 1.97 CONTINUE SYNTHROID Subjective Date/time seen: 01/25/20 10:21 patient is currently in bed with 4 L nasal cannula in place with labored breathing. She is a lot more alert than she was yesterday. She has no complaints at this time but she is pierced lip breathing and labored breathing is present. I will discuss palliative care with this patient today. repeat blood gas pending . Patient denies , CP, palpitation, extremity numbness, lightheadness, dizziness, constipation, diarrhea, chills or fever. Review of Systems Constitutional: Constitutional: Reports fatigue and Reports weakness ENT: Denies vertigo and Denies dizziness Cardiovascular: Cardiovascular: Reports no additional cardiovascular complaints, Denies chest pain at rest, Denies chest pain with activity, Denies syncope, Denies leg edema, Denies lightheadedness, Reports dyspnea, Reports dyspnea on exertion and Reports orthopnea Respiratory: Respiratory: Reports cough ( nonproductive), Reports dyspnea and Reports dyspnea on exertion Gastrointestinal: Gastrointestinal: Reports constipation, Denies nausea and Denies vomiting Genitourinary: Genitourinary: Reports no additio
[2020-01-25 10:36] LABS: Base Excess ABG 10.9 mmol/L (0-2); Oxyhemoglobin 85.1 % (94-100); PO2 ABG 54.4 mmHg (75-85); Total Hemoglobin 12.5 g/dL; pH ABG 7.28 (7.35-7.45)
[2020-01-25 10:40] LABS: Device NASAL CANNULA; Modified Allen's Test Pass; PCO2 ABG 88.5 mmHg (35-45); Site Drawn LEFT RADIAL
[2020-01-25] MEDS: IPRATROPIUM 0.5 MG/ALBUTEROL SULFATE 2.5 MG AMPUL.NEB 3 ML INHALATION ×2 (13:33→20:17)
--- NOTE | 2020-01-25 14:30 | PC.NURSE ---
Patient family member in room to visit with patient. [employer] HE[employer] TENDER Cecelia in room to speak with patient about palliative care and Plan of Care.
--- NOTE | 2020-01-25 15:48 | PM.EVENT ---
Event Note Event Note Event Note: For this patient encounter, I reviewed the TRANSPLANT REGISTERED NURSE documentation, treatment plan, and medical decision making; and I had wnaf-ka-denw time with this patient. Pt. is alert and oriented to time, place and situation. She recited what Cecelia Lopez had spoken to her about earlier in the AM: She has bad COPD; she is being asked to consider palliative care or going into hospice. She understands it's possible her symptoms could get worse today and that I will do whatever I can to reverse the condition. If that's not possible, to make her comfortable. She is DNI. Pt. wants to wait for a conference call with children tomorrow. Pt. sleeps better taking lorazepam 0.25 mg at night. CPAP will be used during the night.
[2020-01-25] MEDS: SENNA/DOCUSATE SODIUM TABLET 1 TAB PO (20:17)
[2020-01-26] VITALS (12 sets, daily range): BP systolic 125–166; BP diastolic 49–83; PULSE 76–109; RESP 16–26; TEMP 36.1–36.4; O2SAT 94–98
[2020-01-26] MEDS: IPRATROPIUM 0.5 MG/ALBUTEROL SULFATE 2.5 MG AMPUL.NEB 3 ML INHALATION ×3 (05:39→20:58)
[2020-01-26] MEDS: methylPREDNISolone SOD SUCC 125 MG VIAL IV PUSH ×3 (06:04→21:00)
[2020-01-26] MEDS: DIGOXIN TAB 125 MCG TABLET PO (09:49)
[2020-01-26] MEDS: levoFLOXacin 500 MG/D5W 100 ML 500 MG/100 ML BAG 100 MG IVPB (09:49)
[2020-01-26] MEDS: ASPIRIN 81 MG ENTERIC TABLET PO (09:49)
[2020-01-26] MEDS: ACETAMINOPHEN 325 MG TABLET 650 MG PO (09:51)
[2020-01-26] MEDS: MIDODRINE HCL 2.5 MG TABLET 5 MG PO ×4 (09:52→20:59)
[2020-01-26] MEDS: THERAPEUTIC MULTIVITAMINS/MINERALS TAB (*BKC) 1 TABLET PO (09:52)
[2020-01-26] MEDS: PRAVASTATIN SODIUM 20 MG TABLET 40 MG PO (09:52)
[2020-01-26] MEDS: FUROSEMIDE 40 MG TABLET PO (09:52)
[2020-01-26] MEDS: LEVOTHYROXINE SODIUM 50 MCG TABLET PO (09:52)
[2020-01-26] MEDS: POTASSIUM CHLORIDE 20 MEQ TABLET PO (09:52)
[2020-01-26] MEDS: PANTOPRAZOLE 40 MG TABLET PO (09:53)
[2020-01-26] MEDS: FLUDROCORTISONE ACETATE 0.1 MG TABLET PO ×2 (09:53→17:17)
[2020-01-26 09:59] LABS: Base Excess ABG 16.9 mmol/L (0-2); HCO3 ABG 45.9 mmol/L (23-29); Hematocrit 41.1 % (35.0-42.0); Hemoglobin 11.7 g/dL (11.7-13.8); Mean Corpuscular HGB Conc 28.5 g/dL (32.0-36.0); Mean Corpuscular Hemoglobin 24.2 pg (27.0-31.0); Mean Corpuscular Volume 85.1 fL (78.0-102.0); Mean Platelet Volume 10.4 fl (9.2-11.8); Oxygen Content ABG 18.2 %vol (16.0-22.0); Oxygen Saturation ABG 99.4 % (95-97); Oxyhemoglobin 97.7 % (94-100); PO2 ABG 201.5 mmHg (75-85); Platelet Count Result 198 K/mm3 (150-420); Red Blood Count 4.83 M/mm3 (4.20-5.40); Total Hemoglobin 12.9 g/dL; White Blood Count 7.3 K/mm3 (4.8-10.8); pH ABG 7.38 (7.35-7.45)
[2020-01-26 10:02] LABS: PCO2 ABG 79.6 mmHg (35-45)
--- NOTE | 2020-01-26 10:02 | PC.NURSE ---
Cecelia notified of critical ABG results. No new orders
[2020-01-26 10:06] LABS: Site Drawn LEFT BRACHIAL
[2020-01-26 10:07] LABS: Device NASAL CANNULA
[2020-01-26 10:14] LABS: Alanine Aminotransferase 40 U/L (14-59); Albumin Level 2.9 g/dL (3.4-5.0); Alkaline Phosphatase 70 U/L (46-116); Aspartate Amino Transferase 34 U/L (15-37); Bilirubin,Total 0.2 mg/dL (0.00-1.00); Blood Urea Nitrogen 20 mg/dL (7-18); Calcium 8.9 mg/dL (8.5-10.1); Chloride 100 mmol/L (98-108); Estimated CRCL calculation 36 ml/min; Estimated Glomerular Filt Rate > 60; Glucose 341 mg/dL (70-99); Osmolality Calculated 311 mOsm/kg (285-295); Potassium 4.2 mmol/L (3.5-5.1); Sodium 143 mmol/L (136-145); Total Protein 6.1 g/dL (6.4-8.2)
[2020-01-26 10:27] LABS: Anion Gap 3.2 mmol/L (7-16); Carbon Dioxide 44 mmol/L (21-32)
--- NOTE | 2020-01-26 10:43 | PC.NURSE ---
Cecelia HIGGINS notified of labs on patient. Waiting on new orders.
[2020-01-26] MEDS: INSULIN HUMAN REGULAR (*BKC) 100 UNITS/ML SUB-Q (14:07)
--- NOTE | 2020-01-26 15:19 | P.PNIM_ITS ---
Progress Note: A&P Assessment and Plan (1) COPD exacerbation: Code(s): J44.1 - Chronic obstructive pulmonary disease with (acute) exacerbation <Cecelia BowlesSHU Vizcarra - Last Filed: 01/26/20 15:33> Status: Acute <Cecelia Perez SHU Lopez - Last Filed: 01/26/20 15:33> Assessment and Plan: * CONTINUE LEVAQUIN * CONTINUE NEBULIZER TREATMENT * WILL START INCENTIVE SPIROMETER * WILL START SOLU-MEDROL * CHEST X-RAY INDICATES Chronic hyperinflation and emphysema. * INFLUENZA NEGATIVE * C REACTIVE SLIGHTLY ELEVATED 2.6 * PATIENT on BiPAP overnight she is currently on 2 L nasal cannula * CO2 worsened use BiPAP, <Rakeshjane WilburSHU Vizcarra - Last Filed: 01/26/20 15:33> (2) Atrial fibrillation, chronic: Code(s): I48.20 - Chronic atrial fibrillation, unspecified <SHU Calzada - Last Filed: 01/26/20 15:33> Status: Acute <Cecelia BowlesDUSTIN VizcarraAleksandraAlex - Last Filed: 01/26/20 15:33> Assessment and Plan: * CONTROLLED * PATIENT HIGH FALL RISK. ON ANY LONG-TERM ANTICOAGULANT. TAKES 80 MG ASPIRIN DAILY * WILL PUT PATIENT LOVENOX WHILE SHE IS HERE PRECAUTIONS FOR HIGH FALL WRIST * EKG INDICATES AFIB WITH HEART RATE OF 96 * CONTINUE TELEMETRY * CONTINUE DIGOXIN 125 MCG * DIGOXIN LEVEL 0.9 <Rakeshjane WilburDUSTIN VizcarraAleksandralAex - Last Filed: 01/26/20 15:33> (3) Chronic orthostatic hypotension: Code(s): I95.1 - Orthostatic hypotension <Cecelia BowlesDUSTIN VizcarraAleksandraC - Last Filed: 01/26/20 15:33> Status: Acute <Rakeshjane WilburDUSTIN VizcarraAleksandraAlex - Last Filed: 01/26/20 15:33> Assessment and Plan: * STABLE * CONTINUE MIDODRINE * CONTINUE FALL PRECAUTION * MONITOR VITAL SIGNS IS ORDERED <SHU Calzada - Last Filed: 01/26/20 15:33> (4) H/O: CVA (cerebrovascular accident): Code(s): Z86.73 - Personal history of transient ischemic attack (TIA), and cerebral infarction without residual deficits <DUSTIN Calzada-C - Last Filed: 01/26/20 15:33> Status: Acute <SHU Calzada - Last Filed: 01/26/20 15:33> Assessment and Plan: * NO RESIDUAL NOTED * STABLE <DUSTIN Calzada-C - Last Filed: 01/26/20 15:33> (5) GERD (gastroesophageal reflux disease): Code(s): K21.9 - Gastro-esophageal reflux disease without esophagitis <DUSTIN Calzada-C - Last Filed: 01/26/20 15:33> Status: Acute <SHU Calzada - Last Filed: 01/26/20 15:33> Assessment and Plan: * continue PROTONIX <DUSTIN Calzada-C - Last Filed: 01/26/20 15:33> (6) DVT prophylaxis: Code(s): Z29.9 - Encounter for prophylactic measures, unspecified <DUSTIN Calzada-C - Last Filed: 01/26/20 15:33> Status: Acute <DUSTIN Calzada-C - Last Filed: 01/26/20 15:33> Assessment and Plan: continue LOVENOX <DUSTIN Calzada-C - Last Filed: 01/26/20 15:33> (7) Metabolic alkalosis with respiratory acidosis: Code(s): E87.4 - Mixed disorder of acid-base balance <DUSTIN Calzada-C - Last Filed: 01/26/20 15:33> Status: Acute <DUSTIN Calzada-C - Last Filed: 01/26/20 15:33> Assessment and Plan: * no improvement * ADMISSION PCO2 85.1, today blood gas 79.6 after being on BiPAP all night * CONTINUE OXYGEN SUPPLEMENT * LACTIC ACID NEGATIVE * CONT BIPAP AND REPEAT BLOOD GAS <DUSTIN Calzada-C - Last Filed: 01/26/20 15:33> (8) Elevated brain natriuretic peptide (BNP) level: Code(s): R79.89 - Other specified abnormal fi
--- NOTE | 2020-01-26 15:19 | PM.IMPN ---
Progress Note: A&P Assessment and Plan (1) COPD exacerbation: Code(s): J44.1 - Chronic obstructive pulmonary disease with (acute) exacerbation <SHU Calzada - Last Filed: 01/26/20 15:33> Status: Acute <HSU Calzada - Last Filed: 01/26/20 15:33> Assessment and Plan: CONTINUE LEVAQUIN CONTINUE NEBULIZER TREATMENT WILL START INCENTIVE SPIROMETER WILL START SOLU-MEDROL CHEST X-RAY INDICATES Chronic hyperinflation and emphysema. INFLUENZA NEGATIVE C REACTIVE SLIGHTLY ELEVATED 2.6 PATIENT on BiPAP overnight she is currently on 2 L nasal cannula CO2 worsened use BiPAP, <SHU Calzada - Last Filed: 01/26/20 15:33> (2) Atrial fibrillation, chronic: Code(s): I48.20 - Chronic atrial fibrillation, unspecified <SHU Calzada - Last Filed: 01/26/20 15:33> Status: Acute <SHU Calzada - Last Filed: 01/26/20 15:33> Assessment and Plan: CONTROLLED PATIENT HIGH FALL RISK. ON ANY LONG-TERM ANTICOAGULANT. TAKES 80 MG ASPIRIN DAILY WILL PUT PATIENT LOVENOX WHILE SHE IS HERE PRECAUTIONS FOR HIGH FALL WRIST EKG INDICATES AFIB WITH HEART RATE OF 96 CONTINUE TELEMETRY CONTINUE DIGOXIN 125 MCG DIGOXIN LEVEL 0.9 <SHU Calzada - Last Filed: 01/26/20 15:33> (3) Chronic orthostatic hypotension: Code(s): I95.1 - Orthostatic hypotension <SHU Calzada - Last Filed: 01/26/20 15:33> Status: Acute <SHU Calzada - Last Filed: 01/26/20 15:33> Assessment and Plan: STABLE CONTINUE MIDODRINE CONTINUE FALL PRECAUTION MONITOR VITAL SIGNS IS ORDERED <SHU Calzada - Last Filed: 01/26/20 15:33> (4) H/O: CVA (cerebrovascular accident): Code(s): Z86.73 - Personal history of transient ischemic attack (TIA), and cerebral infarction without residual deficits <SHU Calzada - Last Filed: 03/16/20 15:33> Status: Acute <Cecelia Lopez EGG GRADER-C - Last Filed: 01/26/20 15:33> Assessment and Plan: NO RESIDUAL NOTED STABLE <Cecelia Lopez EGG GRADER-C - Last Filed: 01/26/20 15:33> (5) GERD (gastroesophageal reflux disease): Code(s): K21.9 - Gastro-esophageal reflux disease without esophagitis <Cecelia Lopez EGG GRADER-C - Last Filed: 01/26/20 15:33> Status: Acute <Cecelia Lopez EGG GRADER-C - Last Filed: 01/26/20 15:33> Assessment and Plan: continue PROTONIX <Cecelia LopezDUSTIN-C - Last Filed: 01/26/20 15:33> (6) DVT prophylaxis: Code(s): Z29.9 - Encounter for prophylactic measures, unspecified <Cecelia Lopez EGG GRADER-C - Last Filed: 01/26/20 15:33> Status: Acute <Cecelia Lopez EGG GRADER-C - Last Filed: 01/26/20 15:33> Assessment and Plan: continue LOVENOX <Cecelia Lopez EGG GRADER-C - Last Filed: 01/26/20 15:33> (7) Metabolic alkalosis with respiratory acidosis: Code(s): E87.4 - Mixed disorder of acid-base balance <Cecelia Lopez EGG GRADER-C - Last Filed: 01/26/20 15:33> Status: Acute <Cecelia Lopez EGG GRADER-C - Last Filed: 01/26/20 15:33> Assessment and Plan: no improvement ADMISSION PCO2 85.1, today blood gas 79.6 after being on BiPAP all night CONTINUE OXYGEN SUPPLEMENT LACTIC ACID NEGATIVE CONT BIPAP AND REPEAT BLOOD GAS <Cecelia Lopez EGG GRADER-C - Last Filed: 01/26/20 15:33> (8) Elevated brain natriuretic peptide (BNP) level: Code(s): R79.89 - Other specified abnormal findings of blood chemistry <Cecelia Perez John EGG GRADER-C - Last Filed: 01/26/20 15:33> Status: Acute <Cecelia Lopez, EGG GRADER-C - Last Filed: 01/26/20 15:33> Assessment and Plan: BNP ON ADMISSION 403 TODAY IMPROVED IT APPEARS THAT HER BASELINE BNP MIGHT POSSIBLY BE IN THE UPPER 300S ACCORDING TO THE LAB ON 11/30 BNP WAS 394 DOES NOT DISPLAY A
[2020-01-26 17:23] LABS: Glucose Point of Care 107 (65-105)
[2020-01-26] MEDS: SENNA/DOCUSATE SODIUM TABLET 1 TAB PO (20:59)
[2020-01-27] VITALS (13 sets, daily range): BP systolic 134–170; BP diastolic 74–99; PULSE 66–112; RESP 18–24; TEMP 36–36.6; O2SAT 92–97
[2020-01-27 05:34] LABS: Hematocrit 45.3 % (35.0-42.0); Hemoglobin 13.2 g/dL (11.7-13.8); Mean Corpuscular HGB Conc 29.1 g/dL (32.0-36.0); Mean Corpuscular Hemoglobin 24.6 pg (27.0-31.0); Mean Corpuscular Volume 84.4 fL (78.0-102.0); Mean Platelet Volume 10.7 fl (9.2-11.8); Platelet Count Result 218 K/mm3 (150-420); Red Blood Count 5.37 M/mm3 (4.20-5.40); Red Cell Distribution Width 19.9 % (11.6-14.4); White Blood Count 8.2 K/mm3 (4.8-10.8)
[2020-01-27] MEDS: IPRATROPIUM 0.5 MG/ALBUTEROL SULFATE 2.5 MG AMPUL.NEB 3 ML INHALATION ×3 (05:40→21:37)
[2020-01-27 05:52] LABS: Alanine Aminotransferase 48 U/L (14-59); Albumin Level 3.2 g/dL (3.4-5.0); Alkaline Phosphatase 74 U/L (46-116); Aspartate Amino Transferase 33 U/L (15-37); Bilirubin,Total 0.4 mg/dL (0.00-1.00); Blood Urea Nitrogen 18 mg/dL (7-18); Chloride 96 mmol/L (98-108); Estimated CRCL calculation 35 ml/min; Estimated Glomerular Filt Rate > 60; Glucose 164 mg/dL (70-99); Osmolality Calculated 301 mOsm/kg (285-295); Potassium 2.8 mmol/L (3.5-5.1); Sodium 143 mmol/L (136-145); Total Protein 6.6 g/dL (6.4-8.2)
[2020-01-27 06:00] LABS: Anion Gap 4.79999 mmol/L (7-16); Carbon Dioxide > 45 mmol/L (21-32)
[2020-01-27] MEDS: methylPREDNISolone SOD SUCC 125 MG VIAL IV PUSH ×3 (06:33→21:38)
[2020-01-27] MEDS: levoFLOXacin 500 MG/D5W 100 ML 500 MG/100 ML BAG 100 MG IVPB (09:10)
[2020-01-27] MEDS: FUROSEMIDE 40 MG TABLET PO (09:15)
[2020-01-27] MEDS: PRAVASTATIN SODIUM 20 MG TABLET 40 MG PO (09:15)
[2020-01-27] MEDS: POTASSIUM CHLORIDE 20 MEQ TABLET PO (09:15)
[2020-01-27] MEDS: THERAPEUTIC MULTIVITAMINS/MINERALS TAB (*BKC) 1 TABLET PO (09:15)
[2020-01-27] MEDS: MIDODRINE HCL 2.5 MG TABLET 5 MG PO ×4 (09:16→21:38)
[2020-01-27] MEDS: DIGOXIN TAB 125 MCG TABLET PO (09:16)
[2020-01-27] MEDS: PANTOPRAZOLE 40 MG TABLET PO (09:16)
[2020-01-27] MEDS: LEVOTHYROXINE SODIUM 50 MCG TABLET PO (09:16)
[2020-01-27] MEDS: FLUDROCORTISONE ACETATE 0.1 MG TABLET PO ×2 (09:17→17:16)
[2020-01-27] MEDS: ASPIRIN 81 MG ENTERIC TABLET PO (09:17)
[2020-01-27] MEDS: KCL 20 MEQ/SW 100 ML 100 ML 50 MEQ IVPB ×2 (10:07→13:40)
--- NOTE | 2020-01-27 10:35 | PC.NURSE ---
compalints of cough due to medicine, didn't go down right, color pale, warm and dry, loose weak cough noted, given albuteral inhaler x1, cough starting to lessen, family at the bedside
--- NOTE | 2020-01-27 10:59 | PC.NURSE ---
x1 assist up to BSC, increase LOVE noted, purse lip breathing, oxygen on at 2L nc
[2020-01-27] MEDS: SODIUM CHLORIDE 0.9% IV 500 ML 50 ML IV CONT (12:20)
--- NOTE | 2020-01-27 12:45 | PC.NURSE ---
x1 assist up to BSC, appiah noted, returned to bed, voiding well
--- NOTE | 2020-01-27 13:19 | PC.NURSE ---
potassium continues to infuse
--- NOTE | 2020-01-27 14:04 | PC.NURSE ---
assisted up to commode, voiding well, potassium infusing, rate slowed due to discomfort, site clear,
--- NOTE | 2020-01-27 14:05 | P.PNIM_ITS ---
Progress Note: A&P Assessment and Plan (1) COPD exacerbation: Code(s): J44.1 - Chronic obstructive pulmonary disease with (acute) exacerbation Status: Acute Assessment and Plan: * CONTINUE LEVAQUIN * CONTINUE NEBULIZER TREATMENT * WILL START INCENTIVE SPIROMETER * WILL START SOLU-MEDROL * CHEST X-RAY INDICATES Chronic hyperinflation and emphysema. * INFLUENZA NEGATIVE * C REACTIVE SLIGHTLY ELEVATED 2.6 * PATIENT CURRENTLY ON 2 L NASAL CANNULA * PATIENT WILL DISCHARGE HOME TO HOSPICE , (2) Atrial fibrillation, chronic: Code(s): I48.20 - Chronic atrial fibrillation, unspecified Status: Acute Assessment and Plan: * CONTROLLED * PATIENT HIGH FALL RISK. ON ANY LONG-TERM ANTICOAGULANT. TAKES 80 MG ASPIRIN DAILY * WILL PUT PATIENT LOVENOX WHILE SHE IS HERE PRECAUTIONS FOR HIGH FALL WRIST * EKG INDICATES AFIB WITH HEART RATE OF 96 * CONTINUE TELEMETRY * CONTINUE DIGOXIN 125 MCG * DIGOXIN LEVEL 0.9 (3) Chronic orthostatic hypotension: Code(s): I95.1 - Orthostatic hypotension Status: Acute Assessment and Plan: * STABLE * CONTINUE MIDODRINE * CONTINUE FALL PRECAUTION * MONITOR VITAL SIGNS IS ORDERED * PATIENT WILL DISCHARGE HOME TO HOSPICE (4) H/O: CVA (cerebrovascular accident): Code(s): Z86.73 - Personal history of transient ischemic attack (TIA), and cerebral infarction without residual deficits Status: Acute Assessment and Plan: * NO RESIDUAL NOTED * STABLE (5) GERD (gastroesophageal reflux disease): Code(s): K21.9 - Gastro-esophageal reflux disease without esophagitis Status: Acute Assessment and Plan: * continue PROTONIX (6) DVT prophylaxis: Code(s): Z29.9 - Encounter for prophylactic measures, unspecified Status: Acute Assessment and Plan: continue LOVENOX (7) Metabolic alkalosis with respiratory acidosis: Code(s): E87.4 - Mixed disorder of acid-base balance Status: Acute Assessment and Plan: * no improvement * ADMISSION PCO2 85.1, today blood gas 79.6 after being on BiPAP all night * CONTINUE OXYGEN SUPPLEMENT * LACTIC ACID NEGATIVE (8) Elevated brain natriuretic peptide (BNP) level: Code(s): R79.89 - Other specified abnormal findings of blood chemistry Status: Acute Assessment and Plan: * BNP ON ADMISSION 403 TODAY IMPROVED * IT APPEARS THAT HER BASELINE BNP MIGHT POSSIBLY BE IN THE UPPER 300S ACCORDING TO THE LAB ON 11/30 BNP WAS 394 * DOES NOT DISPLAY ANY SIGNS AND SYMPTOMS OF CONGESTIVE HEART FAILURE (9) Hypothyroidism: Code(s): E03.9 - Hypothyroidism, unspecified Status: Acute Assessment and Plan: * TSH 1.97 * CONTINUE SYNTHROID Subjective Date/time seen: 01/27/20 14:05 PATIENT REMAINS IN BED WITH LABORED, PURSED LIP BREATHING. WHILE IN THE ROOM TODAY PATIENT TOLD FAMILY MEMBER THAT SHE WANTED TO AND IF IT WAS OKAY IF SHE . FAMILY MEMBERS THE PATIENT HAS DECIDED TO MAKE HER DNR AND SEND HER HOME ON HOSPICE. CASE COORDINATION INFORMED OF THE DECISION AND NOTIFIED THAT FAMILY WOULD LIKE PATIENT TO GO HOME ON HOSPICE. HOSPICE OF CHOICE WOULD BE [facility] . CASE COORDINATION WAS GIVEN THE NUMBER FOR vITAS [phone] ([facility]) Review of Systems Constitutional: Constitutional: Reports fatigue and Reports weakness ENT: Denies vertigo and Denies dizziness Cardiovascular: Cardiovascular: Reports no additional cardiovascular complaints, Carlos
--- NOTE | 2020-01-27 14:05 | PM.IMPN ---
Progress Note: A&P Assessment and Plan (1) COPD exacerbation: Code(s): J44.1 - Chronic obstructive pulmonary disease with (acute) exacerbation Status: Acute Assessment and Plan: CONTINUE LEVAQUIN CONTINUE NEBULIZER TREATMENT WILL START INCENTIVE SPIROMETER WILL START SOLU-MEDROL CHEST X-RAY INDICATES Chronic hyperinflation and emphysema. INFLUENZA NEGATIVE C REACTIVE SLIGHTLY ELEVATED 2.6 PATIENT CURRENTLY ON 2 L NASAL CANNULA PATIENT WILL DISCHARGE HOME TO HOSPICE , (2) Atrial fibrillation, chronic: Code(s): I48.20 - Chronic atrial fibrillation, unspecified Status: Acute Assessment and Plan: CONTROLLED PATIENT HIGH FALL RISK. ON ANY LONG-TERM ANTICOAGULANT. TAKES 80 MG ASPIRIN DAILY WILL PUT PATIENT LOVENOX WHILE SHE IS HERE PRECAUTIONS FOR HIGH FALL WRIST EKG INDICATES AFIB WITH HEART RATE OF 96 CONTINUE TELEMETRY CONTINUE DIGOXIN 125 MCG DIGOXIN LEVEL 0.9 (3) Chronic orthostatic hypotension: Code(s): I95.1 - Orthostatic hypotension Status: Acute Assessment and Plan: STABLE CONTINUE MIDODRINE CONTINUE FALL PRECAUTION MONITOR VITAL SIGNS IS ORDERED PATIENT WILL DISCHARGE HOME TO HOSPICE (4) H/O: CVA (cerebrovascular accident): Code(s): Z86.73 - Personal history of transient ischemic attack (TIA), and cerebral infarction without residual deficits Status: Acute Assessment and Plan: NO RESIDUAL NOTED STABLE (5) GERD (gastroesophageal reflux disease): Code(s): K21.9 - Gastro-esophageal reflux disease without esophagitis Status: Acute Assessment and Plan: continue PROTONIX (6) DVT prophylaxis: Code(s): Z29.9 - Encounter for prophylactic measures, unspecified Status: Acute Assessment and Plan: continue LOVENOX (7) Metabolic alkalosis with respiratory acidosis: Code(s): E87.4 - Mixed disorder of acid-base balance Status: Acute Assessment and Plan: no improvement ADMISSION PCO2 85.1, today blood gas 79.6 after being on BiPAP all night CONTINUE OXYGEN SUPPLEMENT LACTIC ACID NEGATIVE (8) Elevated brain natriuretic peptide (BNP) level: Code(s): R79.89 - Other specified abnormal findings of blood chemistry Status: Acute Assessment and Plan: BNP ON ADMISSION 403 TODAY IMPROVED IT APPEARS THAT HER BASELINE BNP MIGHT POSSIBLY BE IN THE UPPER 300S ACCORDING TO THE LAB ON 11/30 BNP WAS 394 DOES NOT DISPLAY ANY SIGNS AND SYMPTOMS OF CONGESTIVE HEART FAILURE (9) Hypothyroidism: Code(s): E03.9 - Hypothyroidism, unspecified Status: Acute Assessment and Plan: TSH 1.97 CONTINUE SYNTHROID Subjective Date/time seen: 01/27/20 14:05 PATIENT REMAINS IN BED WITH LABORED, PURSED LIP BREATHING. WHILE IN THE ROOM TODAY PATIENT TOLD FAMILY MEMBER THAT SHE WANTED TO AND IF IT WAS OKAY IF SHE . FAMILY MEMBERS THE PATIENT HAS DECIDED TO MAKE HER DNR AND SEND HER HOME ON HOSPICE. CASE COORDINATION INFORMED OF THE DECISION AND NOTIFIED THAT FAMILY WOULD LIKE PATIENT TO GO HOME ON HOSPICE. HOSPICE OF CHOICE WOULD BE [facility] . CASE COORDINATION WAS GIVEN THE NUMBER FOR vITAS [phone] ([facility]) Review of Systems Constitutional: Constitutional: Reports fatigue and Reports weakness ENT: Denies vertigo and Denies dizziness Cardiovascular: Cardiovascular: Reports no additional cardiovascular complaints, Denies chest pain at rest, Denies chest pain with activity, Denies syncope, Denies leg edema, Denies lightheadedness, Reports dyspnea, Reports dyspnea on exertion and Reports orthopnea Respiratory: Respiratory: Reports cough ( nonproductive), Reports dyspnea and Reports dyspnea on exertion Gastrointestinal: Gastrointestinal: Reports constipation, Denies nausea and Denies vomiting Genitourinary: Genitourinary: Reports no additional female genitourinary complaints Muscul
--- NOTE | 2020-01-27 18:32 | PM.EVENT ---
Event Note Event Note Event Note: Patient denies any complaints or pain. Managing to keep sats above 90% on 2 L by nasal cannula. Alert, oriented to person. very mild increased work of breathing. Few expiratory wheezes at the bases but decreased breath sounds overall. Mild tachycardia. Regular rate rhythm without murmur. Abdomen soft, nontender. No lower extremity edema. Distal pulses are full and symmetric. Extremities are warm. Patient is going home tomorrow and family will arrange 24 hour care. Little reason to continue antibiotics at this point. I have examined the patient and reviewed the chart. I discussed the patient's care with Cuate Lopez APN and agree with her assessment and plan.
--- NOTE | 2020-01-27 19:44 | PC.NURSE ---
pt requests ice cream if possible, given vanilla cup, hob up, rails up, tv on
[2020-01-27] MEDS: SENNA/DOCUSATE SODIUM TABLET 1 TAB PO (21:38)
[2020-01-28] VITALS (11 sets, daily range): BP systolic 120–155; BP diastolic 65–86; PULSE 78–98; RESP 20; TEMP 36.2–36.5; O2SAT 92–95
--- NOTE | 2020-01-28 02:09 | PC.NURSE ---
Sleeping on hourly rounds. Head of bed elevated. O2 2l Per NC continues. Call moe @ hand.
[2020-01-28] MEDS: IPRATROPIUM 0.5 MG/ALBUTEROL SULFATE 2.5 MG AMPUL.NEB 3 ML INHALATION ×2 (06:05→14:12)
[2020-01-28] MEDS: methylPREDNISolone SOD SUCC 125 MG VIAL IV PUSH (06:10)
[2020-01-28] MEDS: levoFLOXacin 500 MG/D5W 100 ML 500 MG/100 ML BAG 100 MG IVPB (09:32)
[2020-01-28] MEDS: FLUDROCORTISONE ACETATE 0.1 MG TABLET PO (09:36)
[2020-01-28] MEDS: ASPIRIN 81 MG ENTERIC TABLET PO (09:37)
[2020-01-28] MEDS: PRAVASTATIN SODIUM 20 MG TABLET 40 MG PO (09:37)
[2020-01-28] MEDS: PANTOPRAZOLE 40 MG TABLET PO (09:37)
[2020-01-28] MEDS: POTASSIUM CHLORIDE 20 MEQ TABLET PO (09:37)
[2020-01-28] MEDS: FUROSEMIDE 40 MG TABLET PO (09:37)
[2020-01-28] MEDS: MIDODRINE HCL 2.5 MG TABLET 5 MG PO ×2 (09:37→13:18)
[2020-01-28] MEDS: THERAPEUTIC MULTIVITAMINS/MINERALS TAB (*BKC) 1 TABLET PO (09:37)
[2020-01-28] MEDS: LEVOTHYROXINE SODIUM 50 MCG TABLET PO (09:37)
[2020-01-28] MEDS: DIGOXIN TAB 125 MCG TABLET PO (09:38)
[2020-01-28] MEDS: buPROPion HCL XL (24 HR) 150 MG TABCR PO (11:17)
[2020-01-28] MEDS: HYDROCORTISONE 1% 30 GM CREAM 1 APPLIC TOPICAL (11:20)
--- NOTE | 2020-01-28 12:59 | P.DS_ITS ---
DS: Diagnosis Admitting Diagnosis Admitting Diagnosis: Chronic obstructive pulmonary disease with (acute) exacerbation <Cecelia LopezSHU - Last Filed: 01/28/20 13:09> Discharge Diagnosis (1) COPD exacerbation: Code(s): J44.1 - Chronic obstructive pulmonary disease with (acute) exacerbation <Cecelia Perez John COACH CLEANER-C - Last Filed: 01/28/20 13:09> Status: Acute <Cecelia Lopez COACH CLEANER-C - Last Filed: 01/28/20 13:09> Assessment and Plan: * patient will discharge on Levaquin and prednisone x5 days * CHEST X-RAY INDICATES Chronic hyperinflation and emphysema. * INFLUENZA NEGATIVE * she will continue her home oxygen * PATIENT WILL DISCHARGE HOME TO HOSPICE , <Rakeshjane WilburSHU Vizcarra - Last Filed: 01/28/20 13:09> (2) Atrial fibrillation, chronic: Code(s): I48.20 - Chronic atrial fibrillation, unspecified <Cecelia BowlesSHU Vizcarra - Last Filed: 01/28/20 13:09> Status: Acute <Cecelia BowlesSHU Vizcarra - Last Filed: 01/28/20 13:09> Assessment and Plan: * CONTROLLED * PATIENT HIGH FALL RISK. ON ANY LONG-TERM ANTICOAGULANT. TAKES 80 MG ASPIRIN DAILY * CONTINUE DIGOXIN 125 MCG * DIGOXIN LEVEL 0.9 <Cecelia BowlesCrystal JohnDUSTINAleksandraAlex - Last Filed: 01/28/20 13:09> (3) Chronic orthostatic hypotension: Code(s): I95.1 - Orthostatic hypotension <Cecelia BowlesSHU Vizcarra - Last Filed: 01/28/20 13:09> Status: Acute <Cecelia BowlesSHU Vizcarra - Last Filed: 01/28/20 13:09> Assessment and Plan: * STABLE * CONTINUE MIDODRINE * PATIENT WILL DISCHARGE HOME TO HOSPICE <Rakeshjane WilburSHU Vizcarra - Last Filed: 01/28/20 13:09> (4) H/O: CVA (cerebrovascular accident): Code(s): Z86.73 - Personal history of transient ischemic attack (TIA), and cerebral infarction without residual deficits <SHU Calzada - Last Filed: 01/28/20 13:09> Status: Acute <DUSTIN Calzada-C - Last Filed: 01/28/20 13:09> Assessment and Plan: * NO RESIDUAL NOTED * STABLE <KETTY CalzadaC - Last Filed: 01/28/20 13:09> (5) GERD (gastroesophageal reflux disease): Code(s): K21.9 - Gastro-esophageal reflux disease without esophagitis <Cecelia Lopez DUSTIN-C - Last Filed: 01/28/20 13:09> Status: Acute <DUSTIN Calzada-C - Last Filed: 01/28/20 13:09> Assessment and Plan: * continue PROTONIX <DUSTIN Calzada-C - Last Filed: 01/28/20 13:09> (6) Metabolic alkalosis with respiratory acidosis: Code(s): E87.4 - Mixed disorder of acid-base balance <Cecelia Lopez DUSTIN-C - Last Filed: 01/28/20 13:09> Status: Acute <DUSTIN Calzada-C - Last Filed: 01/28/20 13:09> Assessment and Plan: * no improvementt * CONTINUE OXYGEN SUPPLEMENT <Cecelia Lopez DUSTIN-C - Last Filed: 01/28/20 13:09> (7) Elevated brain natriuretic peptide (BNP) level: Code(s): R79.89 - Other specified abnormal findings of blood chemistry <Cecelia Lopez COACH CLEANER-C - Last Filed: 01/28/20 13:09> Status: Acute <DUSTIN Calzada-C - Last Filed: 01/28/20 13:09> Assessment and Plan: * BNP ON ADMISSION 403 TODAY IMPROVED * IT APPEARS THAT HER BASELINE BNP MIGHT POSSIBLY BE IN THE UPPER 300S ACCORDING TO THE LAB ON 11/30 BNP WAS 394 * DOES NOT DISPLAY ANY SIGNS AND SYMPTOMS OF CONGESTIVE HEART FAILURE <Cecelia Lopez COACH CLEANER-C - Last Filed: 01/28/20 13:09> (8) Hypothyroidism: Code(s): E03.9 - Hypothyroidism, unspecified <Cecelia LopezDUSTIN-Alex - [place]
--- NOTE | 2020-01-28 12:59 | PM.DS ---
DS: Diagnosis Admitting Diagnosis Admitting Diagnosis: Chronic obstructive pulmonary disease with (acute) exacerbation <Rakeshjane WilburDUSTIN VizcarraAleksandraAlex - Last Filed: 01/28/20 13:09> Discharge Diagnosis (1) COPD exacerbation: Code(s): J44.1 - Chronic obstructive pulmonary disease with (acute) exacerbation <Rakeshjane WilburSHU Vizcarra - Last Filed: 01/28/20 13:09> Status: Acute <Rakeshjane WilburSHU Vizcarra - Last Filed: 01/28/20 13:09> Assessment and Plan: patient will discharge on Levaquin and prednisone x5 days CHEST X-RAY INDICATES Chronic hyperinflation and emphysema. INFLUENZA NEGATIVE she will continue her home oxygen PATIENT WILL DISCHARGE HOME TO HOSPICE , <Cecelia WilburDUSTIN VizcarraAleksandraAlex - Last Filed: 01/28/20 13:09> (2) Atrial fibrillation, chronic: Code(s): I48.20 - Chronic atrial fibrillation, unspecified <SHU Calzada - Last Filed: 01/28/20 13:09> Status: Acute <Rakeshjane WilburSHU Vizcarra - Last Filed: 01/28/20 13:09> Assessment and Plan: CONTROLLED PATIENT HIGH FALL RISK. ON ANY LONG-TERM ANTICOAGULANT. TAKES 80 MG ASPIRIN DAILY CONTINUE DIGOXIN 125 MCG DIGOXIN LEVEL 0.9 <RakeshDUSTIN BurnsAleksandraAlex - Last Filed: 01/28/20 13:09> (3) Chronic orthostatic hypotension: Code(s): I95.1 - Orthostatic hypotension <SHU Calzada - Last Filed: 01/28/20 13:09> Status: Acute <Cecelia WilburDUSTIN VizcarraAleksandraAlex - Last Filed: 01/28/20 13:09> Assessment and Plan: STABLE CONTINUE MIDODRINE PATIENT WILL DISCHARGE HOME TO HOSPICE <SHU Calzada - Last Filed: 01/28/20 13:09> (4) H/O: CVA (cerebrovascular accident): Code(s): Z86.73 - Personal history of transient ischemic attack (TIA), and cerebral infarction without residual deficits <SHU Calzada - Last Filed: 01/28/20 13:09> Status: Acute <DUSTIN Calzada-C - Last Filed: 01/28/20 13:09> Assessment and Plan: NO RESIDUAL NOTED STABLE <DUSTIN Calzada-C - Last Filed: 01/28/20 13:09> (5) GERD (gastroesophageal reflux disease): Code(s): K21.9 - Gastro-esophageal reflux disease without esophagitis <DUSTIN Calzada-C - Last Filed: 01/28/20 13:09> Status: Acute <DUSTIN Calzada-C - Last Filed: 01/28/20 13:09> Assessment and Plan: continue PROTONIX <DUSTIN Calzada-C - Last Filed: 01/28/20 13:09> (6) Metabolic alkalosis with respiratory acidosis: Code(s): E87.4 - Mixed disorder of acid-base balance <DUSTIN Calzada-C - Last Filed: 01/28/20 13:09> Status: Acute <SHU Calzada - Last Filed: 01/28/20 13:09> Assessment and Plan: no improvementt CONTINUE OXYGEN SUPPLEMENT <DUSTIN Calzada-C - Last Filed: 01/28/20 13:09> (7) Elevated brain natriuretic peptide (BNP) level: Code(s): R79.89 - Other specified abnormal findings of blood chemistry <DUSTIN Calzada-C - Last Filed: 01/28/20 13:09> Status: Acute <SHU Calzada - Last Filed: 01/28/20 13:09> Assessment and Plan: BNP ON ADMISSION 403 TODAY IMPROVED IT APPEARS THAT HER BASELINE BNP MIGHT POSSIBLY BE IN THE UPPER 300S ACCORDING TO THE LAB ON 11/30 BNP WAS 394 DOES NOT DISPLAY ANY SIGNS AND SYMPTOMS OF CONGESTIVE HEART FAILURE <DUSTIN Calzada-C - Last Filed: 01/28/20 13:09> (8) Hypothyroidism: Code(s): E03.9 - Hypothyroidism, unspecified <DUSTIN Calzada-C - Last Filed: 01/28/20 13:09> Status: Acute <DUSTIN Calzada-C - Last Filed: 01/28/20 13:09> Assessment and Plan: TSH 1.97 CONTINUE SYNTHROID <DUSTIN Calzada-Alex - Last Filed: 01/28/20 13:09> DS: Summary Hospital Course Hospital Course: admission note from 01/23/2020 Narrative: Prabha St is a 84 year
== END 2020-01-28 18:05 | disposition hospice, home (50) | DRG 191 ==
LOC: CHSED 11:09 → CHS2ND 11:17
PROVIDERS: Nurse Practitioner; Admitting Provider Surgery; Emergency Provider Surgery; PCP Internal Medicine; Visit Provider Surgery
DX: J44.1 Chronic obstructive pulmonary disease with (acute) exacerbation (principal); I48.20 Chronic atrial fibrillation, unspecified; E87.4 Mixed disorder of acid-base balance; R13.10 Dysphagia, unspecified; K22.2 Esophageal obstruction; E03.9 Hypothyroidism, unspecified; F17.200 Nicotine dependence, unspecified, uncomplicated; K21.9 Gastro-esophageal reflux disease without esophagitis; E78.5 Hyperlipidemia, unspecified; I95.1 Orthostatic hypotension; Z99.81 Dependence on supplemental oxygen
CPT/HCPCS: 36415; 36600; 71045; 80053; 80162; 81003; 82550; 82553; 82805; 83605; 83735; 83880; 84443; 84484; 85025; 85027; 85610; 85652; 85730; 86140; 87081; 87804; 87880; 93005; 94002; 94640; 94660; 96365; 96375; 96376; 99285; A9270; G0378; J1815; J1956; J2060; J2930; J3480; J7030; J7040

== ENCOUNTER 2020-06-26 21:36 | Inpatient (IN) | payer MEDICARE, SELFPAY ==
--- NOTE | ~2020-06-26 | XR_ITS ---
EXAMINATION: XR chest 1V portable DATE: 06/26/2020 21:52 INDICATION: Dyspnea. TECHNIQUE: A single frontal view of the chest was obtained. COMPARISON: Chest single view 01/27/2020, chest CT 12/02/2019 FINDINGS: The lungs are hyperexpanded with lucencies, consistent with emphysema. Calcified right lung nodules and calcified right hilar lymph nodes are consistent with old granulomatous disease. There a re small pleural effusions. No pneumothorax. The heart size is normal. IMPRESSION: 1. Small pleural effusions. 2. Emphysema. Reviewed, dictated and finalized at location A.
--- NOTE | 2020-06-26 21:42 | ECG_ITS ---
Measurements Intervals [place] Rate: 88 P: IN: 0 QRS: 116 QRSD: 94 T: -73 QT: 311 QTc: 378 Interpretive Statements ATRIAL FIBRILLATION LEFT POSTERIOR FASCICULAR BLOCK NONSPECIFIC T-WAVE ABNORMALITY- INF/LAT LEADS BASELINE ARTIFACT- I, II ABNORMAL ECG Electronically Signed On 06-28-2020 7:13:38 CDT by Cecilio Kevin D.O.
[2020-06-26 22:00] VITALS: BP 142/77; PULSE 84; PULSE 95; RESP 28; TEMP 36.1; O2SAT 97
[2020-06-26 22:13] LABS: Hemoglobin 11.7 g/dL (11.7-13.8); Mean Corpuscular Hemoglobin 27.1 pg (27.0-31.0); Mean Corpuscular Volume 90.5 fL (78.0-102.0); Platelet Count Result 230 K/mm3 (150-420); Red Blood Count 4.31 M/mm3 (4.20-5.40); Red Cell Distribution Width 14.5 % (11.6-14.4); White Blood Count 15.5 K/mm3 (4.8-10.8)
[2020-06-26 22:13] LABS: Base Excess ABG 3.1 mmol/L (0-2); HCO3 ABG 34.1 mmol/L (23-29); Oxygen Content ABG 18.7 %vol (16.0-22.0); Oxygen Saturation ABG 99.8 % (95-97); Oxyhemoglobin 99.3 % (94-100); PO2 ABG 334.1 mmHg (75-85); Total Hemoglobin 12.8 g/dL; pH ABG 7.19 (7.35-7.45)
[2020-06-26 22:15] LABS: Device NON-REBREATHER MASK; Modified Allen's Test Unable to perform; Site Drawn RIGHT RADIAL
[2020-06-26 22:28] LABS: INR 1.4; Partial Thromboplastin Time 33.2 SEC (22.3-31.6); Prothrombin Time 14.4 Seconds (9.64-11.0)
[2020-06-26 22:31] LABS: Lactic Acid 1.6 mmol/L (0.4-2.0)
[2020-06-26] MEDS: methylPREDNISolone SOD SUCC 125 MG VIAL IV PUSH (22:37)
[2020-06-26] MEDS: SODIUM CHLORIDE 0.9% IV 500 ML 999 ML IV CONT (22:37)
[2020-06-26] MEDS: IPRATROPIUM 0.5 MG/ALBUTEROL SULFATE 2.5 MG AMPUL.NEB 3 ML INHALATION (22:37)
[2020-06-26 22:38] VITALS: PULSE 88; RESP 22
[2020-06-26 22:38] LABS: Albumin Level 2.9 g/dL (3.4-5.0); Alkaline Phosphatase 476 U/L (46-116); Anion Gap 3 mmol/L (8-16); Bilirubin,Total 0.6 mg/dL (0.00-1.00); Blood Urea Nitrogen 38 mg/dL (7-18); Calcium 9.7 mg/dL (8.5-10.1); Carbon Dioxide 34 mmol/L (21-32); Chloride 97 mmol/L (98-108); Digoxin 1.6 ng/mL (0.9-2.0); Estimated CRCL calculation 25 ml/min; Estimated Glomerular Filt Rate 48; Glucose 115 mg/dL (70-99); Magnesium 2.3 mg/dL (1.8-2.4); Osmolality Calculated 288 mOsm/kg (285-295); Potassium 5.8 mmol/L (3.5-5.1); Sodium 134 mmol/L (136-145); Total Protein 7.1 g/dL (6.4-8.2)
[2020-06-26 22:42] LABS: Alanine Aminotransferase > 1000 U/L (14-59); Aspartate Amino Transferase > 796 U/L (15-37); Troponin I 0.11 ng/mL (0.00-0.056)
[2020-06-26 22:43] LABS: BNP 1110 pg/mL (0-100)
[2020-06-26 22:45] VITALS: PULSE 100; RESP 22
[2020-06-26 22:49] LABS: Band Neutrophils Percent 8 % (0-6); Basophils Percent Manual 0 % (0-1); Eosinophils Absolute Manual 0.15 K/mm3 (0.02-0.5); Eosinophils Percent Manual 1 % (1-6); Lymphocytes Absolute Manual 1.39 K/mm3 (1.1-4.5); Lymphocytes Percent Manual 9 % (18-44); Metamyelocytes Percent 1 %; Monocytes Absolute Manual 1.39 K/mm3 (0.1-0.90); Monocytes Percent Manual 9 % (3-9); Myelocytes Percent 1 %; Neutrophils Absolute Manual 12.24 K/mm3 (1.7-7.2); Neutrophils Percent Manual 71 % (46-73); Platelet Estimate Adequate (Adequate); Total Cells Counted 100
--- NOTE | 2020-06-26 22:58 | ED.AMS ---
HPI - Altered Mental Status General Chief Complaint: Shortness of Breath/Dyspnea Stated Complaint: ems arrival Source: EMS Mode of arrival: EMS Limitations: no limitations History of Present Illness HPI narrative: this an 84-year-old female that presents to the ER via EMS from a [facility] senior living with some according to senior living staff altered mental status with shortness of breath. EMS arrived and the patient's O2 sats were in the low 80s and started on a non-rebreather. Patient is currently a DNR and appears comfortable her O2 sats have improved and is currently on 3L of oxygen and satting at 98%. The patient has some coarse breath sounds but is breathing comfortably at this time. Talked to the patient's daughter and her wishes were to keep oxygen levels at a reasonable level and and comfort care. Patient has a history of CHF, COPD, atrial fibrillation. MD complaint: altered mental status Onset (ago): hour(s) Severity: moderate Consistency of symptoms: waxing and waning Context: COPD and other ( History of CHF) Associated symptoms: shortness of breath Related Data Home Medications Medication Instructions Recorded Confirmed aspirin [Adult Low Dose Aspirin] 81 mg PO DAILY 11/22/19 06/26/20 coQ10 (ubiquinol) 100 mg PO DAILY 11/22/19 06/26/20 levothyroxine 50 mcg PO DAILY 11/22/19 06/26/20 midodrine 5 mg PO QID 11/22/19 06/26/20 potassium chloride 20 meq PO DAILY 11/22/19 06/26/20 pravastatin 40 mg PO DAILY 11/22/19 06/26/20 sennosides-docusate sodium 1 tab-cap PO HS 11/22/19 06/26/20 [Senokot-S] bisacodyl 10 mg MD DAILY PRN 06/26/20 06/26/20 hyoscyamine sulfate 0.125 mg PO QID PRN 06/26/20 06/26/20 magnesium hydroxide [Milk of 30 ml PO DAILY PRN 06/26/20 06/26/20 Magnesia] morphine concentrate 5 mg PO Q3H PRN 06/26/20 06/26/20 Allergies Allergy/AdvReac Type Severity Reaction Status Date / Time Penicillins Allergy Intermediate Verified 11/23/19 00:48 Review of Systems Review of Systems: All systems reviewed & are unremarkable except as noted in HPI and below PMFSH Past Medical History Medical History Chronic a-fib Diverticulitis Dysphagia Esophageal dilatation Esophageal stricture Foreign body aspiration Fracture of right hip requiring operative repair GERD (gastroesophageal reflux disease) H/O: CVA (cerebrovascular accident) History of hip fracture Hyperlipidemia Lower GI bleed Surgical History Surgical History History of hysterectomy Social History Social History Smoking packs per day: 0.75 Smoking cigarettes per day: 15.0 Years smoked: 65 Smoking pack-years: 48.75 Smoking status: Current every day smoker Tobacco type: cigarettes Second hand tobacco smoke exposure: Yes Alcohol intake: unknown Substance use: never Gender identity (if verbalized by the patient): Female Spiritual care concerns: No Agree to blood products: Yes Exam Const: General: no acute distress Orientation/consciousness: patient oriented x3 HENMT: Head: normal to inspection Eyes: Conjunctivae: conjunctivae normal Pupils: Equal, round and reactive pupils present EOM: EOMs intact bilaterally Neck: Neck: normal visual inspection, no lymphadenopathy and no meningeal signs Chest: Chest palpation & inspection: normal inspection of the chest and abnormal inspection of the chest Resp: Auscultation: diminished lung sounds Cardio: Rhythm: abnormal rhythm GI: GI Palp: Yes Soft to palpation : General: Yes no CVA tenderness Skin: General skin exam: normal color Rashes: no rashes Neuro: General: moves all extremities and no meningeal signs Extrem: General: edema Course Course Emergency Course: Patient breathing has improved and currently 98% on 3L, received a DuoNeb and a dose of IV steroids. Vital Signs Vital sign
[2020-06-26 23:06] VITALS: BP 127/74; PULSE 90; RESP 22; O2SAT 93
[2020-06-26 23:22] VITALS: BP 131/67; PULSE 94; RESP 22; TEMP 36.4; O2SAT 95
[2020-06-27] VITALS: BP 116/40; PULSE 94; RESP 22; TEMP 36.3; O2SAT 93
[2020-06-27] MEDS: SODIUM POLYSTYRENE SULFONONATE 15 GM/60 ML BTL PO (00:36)
--- NOTE | 2020-06-27 01:10 | ADMGEN ---
This patient, Prabha St, was admitted to 2nd Floor Room 208-2. Patient oriented to hospital policies and general routines including ID bracelet, bed and alarms, visiting hours, pain management, procedures, bathroom and other care routines, personal items, smoking policy, room service/diet, and visiting hours. Valuables list includes undergarments. Information on how to activate the Rapid Response Team has been discussed. Patient are encouraged to report perceived risks to care and to ask questions if they do not understand what they are told or what they should do.
[2020-06-27 01:20] VITALS: BMI 18.5
[2020-06-27 06:41] LABS: Hematocrit 39.7 % (35.0-42.0); Hemoglobin 11.9 g/dL (11.7-13.8); Mean Corpuscular Hemoglobin 27.2 pg (27.0-31.0); Mean Corpuscular Volume 90.6 fL (78.0-102.0); Mean Platelet Volume 10.3 fl (9.2-11.8); Platelet Count Result 210 K/mm3 (150-420); Red Blood Count 4.38 M/mm3 (4.20-5.40); Red Cell Distribution Width 14.3 % (11.6-14.4); White Blood Count 11.6 K/mm3 (4.8-10.8)
[2020-06-27 07:13] LABS: Albumin Level 2.9 g/dL (3.4-5.0); Alkaline Phosphatase 464 U/L (46-116); Anion Gap 4 mmol/L (8-16); Bilirubin,Total 0.6 mg/dL (0.00-1.00); Blood Urea Nitrogen 38 mg/dL (7-18); Calcium 9.4 mg/dL (8.5-10.1); Carbon Dioxide 34 mmol/L (21-32); Chloride 98 mmol/L (98-108); Estimated CRCL calculation 35 ml/min; Estimated Glomerular Filt Rate > 60; Glucose 172 mg/dL (70-99); Osmolality Calculated 295 mOsm/kg (285-295); Potassium 5.5 mmol/L (3.5-5.1); Sodium 136 mmol/L (136-145); Total Protein 6.6 g/dL (6.4-8.2)
[2020-06-27 07:21] LABS: Alanine Aminotransferase > 1000 U/L (14-59); Aspartate Amino Transferase > 796 U/L (15-37)
[2020-06-27 07:27] LABS: Band Neutrophils Percent 6 % (0-6); Basophils Percent Manual 0 % (0-1); Eosinophils Percent Manual 0 % (1-6); Lymphocytes Absolute Manual 0.58 K/mm3 (1.1-4.5); Lymphocytes Percent Manual 5 % (18-44); Metamyelocytes Percent 2 %; Monocytes Absolute Manual 0.46 K/mm3 (0.1-0.90); Monocytes Percent Manual 4 % (3-9); Myelocytes Percent 2 %; Neutrophils Absolute Manual 10.09 K/mm3 (1.7-7.2); Neutrophils Percent Manual 81 % (46-73); Platelet Estimate Adequate (Adequate); Total Cells Counted 100
[2020-06-27 07:45] VITALS: BP 140/63; PULSE 81; RESP 28; TEMP 36.3; O2SAT 97
[2020-06-27 09:26] VITALS: PULSE 81; RESP 28; O2SAT 97
--- NOTE | 2020-06-27 09:41 | PM.IMHP ---
H&P: HPI History of Present Illness Date/Time: 06/27/20 09:41 <SHU Calzada - Last Filed: 06/27/20 12:04> Chief complaint: ems arrival <SHU Calzada - Last Filed: 06/27/20 12:04> Narrative: Prabha St is a 84 year old female presented to the ED with altered mental status and shortness of breath. Patient has a past medical history of chronic a field diverticulitis, dysphagia, esophageal dilation, esophageal stricture, foreign body aspiration, fracture of the right hip, GERD, history of CVA, history of hip fracture, hyperlipidemia and lower GI bleed. At this time patient is lethargic possibly due to morphine . according to nursing staff patient was more alert earlier today.given and is unable to participate in this assessment. vital signs 140/63, 81, 28, 97.3, 97% on 3 L nasal cannula. patient does use continuous O2 at 3 L at home. according to the ED notes patient resides in a correction and was reported by nursing staff the patient mental status was altered and she also had shortness of breath. Only EMS arrived patient sats were in the 80s, at that time she was placed on a non-rebreather in which her sats went up to 98%..I will speak with patient's daughter concerning how aggressive she would like for her mother's care to be. Received report from ED doctor that she wanted comfort measures .christina attempted to contact her daughter to discuss how aggressive she wants her treatment plan to be <SHU Calzada - Last Filed: 06/27/20 12:04> Review of Systems Review of Systems: ROS unobtainable: Yes unobtainable due to mental status <SHU Calzada - Last Filed: 06/27/20 12:04> [facility] Past Medical History Medical History: Medical History Chronic a-fib Diverticulitis Dysphagia Esophageal dilatation Esophageal stricture Foreign body aspiration Fracture of right hip requiring operative repair GERD (gastroesophageal reflux disease) H/O: CVA (cerebrovascular accident) History of hip fracture Hyperlipidemia Lower GI bleed <SHU Calzada - Last Filed: 06/27/20 12:04> Surgical History Surgical History: Surgical History History of hysterectomy <SHU Calzada - Last Filed: 06/27/20 12:04> Social History Social History: Social History Smoking packs per day: 0.75 Smoking cigarettes per day: 15.0 Years smoked: 65 Smoking pack-years: 48.75 Smoking status: Former smoker Tobacco type: cigarettes Second hand tobacco smoke exposure: Yes Additional smoking assessment comments: patient doesn't know dates Alcohol intake: former Substance use: never Gender identity (if verbalized by the patient): Female Sexual Orientation (if Verbalized by the Patient): Straight or Heterosexual Spiritual care concerns: No Agree to blood products: Yes <SHU Calzada - Last Filed: 06/27/20 12:04> Meds Home Medications and Allergies Home medications: Home Medications Medication Instructions Recorded Confirmed Type aspirin [Adult Low Dose Aspirin] 81 mg PO DAILY 11/22/19 06/26/20 History coQ10 (ubiquinol) 100 mg PO DAILY 11/22/19 06/26/20 History levothyroxine 50 mcg PO DAILY 11/22/19 06/26/20 History midodrine 5 mg PO QID 11/22/19 06/26/20 History potassium chloride 20 meq PO DAILY 11/22/19 06/26/20 History pravastatin 40 mg PO DAILY 11/22/19 06/26/20 History sennosides-docusate sodium 1 tab-cap PO HS 11/22/19 06/26/20 History [Senokot-S] pantoprazole 40 mg PO DAILY #30 tablet 11/23/19 06/26/20 Rx digoxin 125 mcg PO DAILY #30 tablet 12/03/19 06/26/20 Rx furosemide 40 mg PO DAILY #30 tablet 12/03/19 06/26/20 Rx Centrum Silver 1 tablet PO DAILY #30 tablet 01/28/20 06/26/20 Rx ipratropium-albuterol 3 ml INHALATION Q6H PRN 30 Days #3 01/28/20 06/26/20 Rx
[2020-06-27] MEDS: FUROSEMIDE INJ 40 MG/4 ML VIAL IV PUSH (09:59)
--- NOTE | 2020-06-27 11:03 | PC.NURSE ---
Patient had large incontinent episode of urine. Complete bed linen change, pericare provided. Clean gown applied to patient. Patient pulled up in bed with 2x nurse. Patient tolerated fair. Resting in bed on back with hob elevated to 30 degrees. Bed alarm activated.
[2020-06-27 11:36] LABS: BNP 1280 pg/mL (0-100)
--- NOTE | 2020-06-27 11:58 | P.PNCROSS_ITS ---
Event Note Event Note Event Note: For this patient encounter, I reviewed the [employer] or PA documentation, treatment plan, and medical decision making; and I had [id number] time with this patient. The focus at this point is to determine if [facility] is ready for patient to be in hospice. If no, pt needs further work up decreased mental status and SOB.
--- NOTE | 2020-06-27 15:40 | PC.NURSE ---
Nurse assisted patient to speak on phone with daughter. Patient able to say a few words but fatigued very quickly. Patient knew daugthers voice. Patient confused about situation and time. Appears to be resting comfortably. Spoke with [employer]ATE SPLITTING SUPERVISOR LORY about increase in secretions. N.O. for scopolamine received.
[2020-06-27 16:15] VITALS: BP 139/56; PULSE 82; RESP 28; TEMP 36.2; O2SAT 97
[2020-06-27] MEDS: SCOPOLAMINE 1.5 MG PATCH TRANSDERM (16:50)
[2020-06-27 20:00] VITALS: PULSE 90; RESP 20; O2SAT 94
[2020-06-28] VITALS (8 sets, daily range): BP systolic 117–146; BP diastolic 50–70; PULSE 80–112; RESP 20–40; TEMP 36.3–36.7; O2SAT 76–95
--- NOTE | 2020-06-28 00:15 | PC.NURSE ---
Patient crying out while being turned and positioned. Patient unsettled and not resting. PRN Morphine given.
--- NOTE | 2020-06-28 03:00 | PC.NURSE ---
Patient continues to cry out, even when not being turned and positioned. Patient reaching out for something that isn't there. Patient is trying to tell nurses something but can't be understood. When patient tries to talk she whispers and doesn't make sense. PRN Ativan given to calm patient.
--- NOTE | 2020-06-28 03:30 | PC.NURSE ---
Patient resting. Respirations even and unlabored. No distress noted.
[2020-06-28] MEDS: FUROSEMIDE INJ 40 MG/4 ML VIAL IV PUSH (09:04)
[2020-06-28 12:10] LABS: SARS-CoV-2 RNA PCR Negative
--- NOTE | 2020-06-28 12:27 | P.PN_ITS ---
Progress Note: A&P Assessment and Plan (1) Acute alteration in mental status: Code(s): R41.82 - Altered mental status, unspecified Status: Acute Assessment and Plan: * possibly secondary to hypoxia versus COVID-19 versus respiratory acidosis * patient comfort care neurochecks needed * will make sure patient is comfort (2) COPD exacerbation: Code(s): J44.1 - Chronic obstructive pulmonary disease with (acute) exacerbation Status: Acute Assessment and Plan: * continue continuous oxygen * continue nebulizers * continue vital signs (3) Acute dyspnea: Code(s): R06.00 - Dyspnea, unspecified Status: Acute Assessment and Plan: * secondary to COVID-19 rule out versus COPD versus CHF * continue use of oxygen (4) Elevated brain natriuretic peptide (BNP) level: Code(s): R79.89 - Other specified abnormal findings of blood chemistry Status: Acute Assessment and Plan: * patient does a history of congestive * BMPs in a 1000 * Lasix given in ED * continue Lasix daily * will speak with daughter to see how aggressive she wants to get with treatment (5) Elevated liver enzymes: Code(s): R74.8 - Abnormal levels of other serum enzymes Status: Acute Assessment and Plan: * elevated liver enzymes * will speak with patient's POA to determine how aggressive she wants to treatment plan to be (6) Hypothyroidism: Code(s): E03.9 - Hypothyroidism, unspecified Status: Acute Assessment and Plan: * continue Synthroid (7) Atrial fibrillation, chronic: Code(s): I48.20 - Chronic atrial fibrillation, unspecified Status: Acute Assessment and Plan: * controlled * continued each (8) GERD (gastroesophageal reflux disease): Code(s): K21.9 - Gastro-esophageal reflux disease without esophagitis Status: Acute Assessment and Plan: * continue pantoprazole (9) COVID-19 ruled out: Code(s): Z03.818 - Encounter for observation for suspected exposure to other biological agents ruled out Status: Acute Assessment and Plan: * pending (10) DVT prophylaxis: Code(s): Z29.9 - Encounter for prophylactic measures, unspecified Status: Acute Assessment and Plan: * continue Lovenox (11) Hyperkalemia: Code(s): E87.5 - Hyperkalemia Status: Acute Assessment and Plan: * patient potassium 5.5 * would not aggressively treat patient. she will [facility]. Review of Systems Review of Systems: ROS unobtainable: Yes unobtainable due to mental status Exam Narrative: Exam Narrative: HEENT: PERRLA, Mucous Membranes Moist and [employer], Nares Patent, Sclera Clear Neck: JVD, Supple Pulmonary: diminished lung sounds, labored breathing Cardiovascular: irregular rhythm, Regular Rate Abdominal: Abdomen Soft, Non-Distended, Normal Bowel Sounds Extremities: Normal Pulses Integumentary: No Abnormalities Neurological: abnormal cognition and speech Psychological: lethargic hard to arouse Objective Data Vital Signs Vital Signs: Vital Signs - 24 hr 06/27/20 16:15 06/27/20 20:00 06/28/20 00:00 Temperature 97.1 F L 98.0 F Pulse Rate 82 90 86 Respiratory Rate 28 H 20 20 Blood Pressure 139/56 L 139/67 Pulse Oximetry 97 94 95 06/28/20 0
--- NOTE | 2020-06-28 12:27 | WPDPN ---
Progress Note: A&P Assessment and Plan (1) Acute alteration in mental status: Code(s): R41.82 - Altered mental status, unspecified Status: Acute Assessment and Plan: possibly secondary to hypoxia versus COVID-19 versus respiratory acidosis patient comfort care neurochecks needed will make sure patient is comfort (2) COPD exacerbation: Code(s): J44.1 - Chronic obstructive pulmonary disease with (acute) exacerbation Status: Acute Assessment and Plan: continue continuous oxygen continue nebulizers continue vital signs (3) Acute dyspnea: Code(s): R06.00 - Dyspnea, unspecified Status: Acute Assessment and Plan: secondary to COVID-19 rule out versus COPD versus CHF continue use of oxygen (4) Elevated brain natriuretic peptide (BNP) level: Code(s): R79.89 - Other specified abnormal findings of blood chemistry Status: Acute Assessment and Plan: patient does a history of congestive BMPs in a 1000 Lasix given in ED continue Lasix daily will speak with daughter to see how aggressive she wants to get with treatment (5) Elevated liver enzymes: Code(s): R74.8 - Abnormal levels of other serum enzymes Status: Acute Assessment and Plan: elevated liver enzymes will speak with patient's POA to determine how aggressive she wants to treatment plan to be (6) Hypothyroidism: Code(s): E03.9 - Hypothyroidism, unspecified Status: Acute Assessment and Plan: continue Synthroid (7) Atrial fibrillation, chronic: Code(s): I48.20 - Chronic atrial fibrillation, unspecified Status: Acute Assessment and Plan: controlled continued each (8) GERD (gastroesophageal reflux disease): Code(s): K21.9 - Gastro-esophageal reflux disease without esophagitis Status: Acute Assessment and Plan: continue pantoprazole (9) COVID-19 ruled out: Code(s): Z03.818 - Encounter for observation for suspected exposure to other biological agents ruled out Status: Acute Assessment and Plan: pending (10) DVT prophylaxis: Code(s): Z29.9 - Encounter for prophylactic measures, unspecified Status: Acute Assessment and Plan: continue Lovenox (11) Hyperkalemia: Code(s): E87.5 - Hyperkalemia Status: Acute Assessment and Plan: patient potassium 5.5 would not aggressively treat patient. she [facility] Review of Systems Review of Systems: ROS unobtainable: Yes unobtainable due to mental status Exam Narrative: Exam Narrative: HEENT: PERRLA, Mucous Membranes Moist and [employer], Nares Patent, Sclera Clear Neck: JVD, Supple Pulmonary: diminished lung sounds, labored breathing Cardiovascular: irregular rhythm, Regular Rate Abdominal: Abdomen Soft, Non-Distended, Normal Bowel Sounds Extremities: Normal Pulses Integumentary: No Abnormalities Neurological: abnormal cognition and speech Psychological: lethargic hard to arouse Objective Data Vital Signs Vital Signs: Vital Signs - 24 hr 06/27/20 16:15 06/27/20 20:00 06/28/20 00:00 Temperature 97.1 F L 98.0 F Pulse Rate 82 90 86 Respiratory Rate 28 H 20 20 Blood Pressure 139/56 L 139/67 Pulse Oximetry 97 94 95 06/28/20 08:00 Temperature 97.7 F Pulse Rate 80 Respiratory Rate 36 H Blood Pressure 146/70 H Pulse Oximetry 91 Intake/Output Intake/Output: Intake & Output 06/25/20 06/26/20 06/27/20 06/28/20 23:59 23:59 23:59 23:59 Intake Total 250 200 0 Output Total 900 Balance 250 200 -900 Meds/Results Medications: Active Medications Generic Name Dose Route Start Last Admin Trade Name Donaldq PRN Reason Stop Dose Admin Acetaminophen 650 mg 06/26/20 23:04 Tylenol Tablet PO Q4H PRN Mild Pain (1-3) or Fever Al Hydrox/Mg Hydrox/Simethicone 30 ml 06/26/20 23:04 Mylanta PO
--- NOTE | 2020-06-28 13:46 | PC.NURSE ---
Patient suctioned at this time. Tolerated well. Mouth care given.
--- NOTE | 2020-06-28 20:00 | PC.NURSE ---
Patient having agonal breathing. Very shallow breathing. O2 continues @ 4 lpm/nc. No mottling noted. Patient will move mouth @ times like she's trying to say something but also does this when no one is in the room talking with her. Patient does not open her eyes.
--- NOTE | 2020-06-28 20:20 | PC.NURSE ---
Tyesha St called to check on patient. Updated daughter. Daughter asking if BiPap machine would be better than O2 patient is on. This nurse assured daughter that patient does not appear uncomfortable and that BiPap @ this time wouldn't be appropriate for patient and that patient is in end of life stage. Daughter said okay and hung up.
--- NOTE | 2020-06-28 21:20 | PC.NURSE ---
Patient's son-in-law called after talking with Tyesha St and started explaining how a DNR works and the different kinds of DNR that can be ordered, saying that this patient is supposed to be a DNR active and started explaining what that means, saying he is an ICU nurse and this is how it works. This nurse read patient's DNR to son-in-law, emphasizing the comfort measures part. Son-in-law said that is not a DNR active and wasn't happy with nurse. Son-in-law hung up.
--- NOTE | 2020-06-28 21:51 | PC.NURSE ---
This nurse spoke to patient's daughter, Tyesha St. Tyesha stated that she wanted patient on bipap for comfort measure. This nurse attempted to explain that patient appears comfortable at this time and that her current status is normal for end of life patient. Daughter stated she thinks her mother would be more comfortable with bipap. This nurse stated she would call ER MD and explain daughter's wishes. MD stated that it would be ok to put patient on bipap if that's what the daughter wanted. Resp Therapy notified. This nurse called Tyesha back and stated that MD approved the bipap. This nurse and daughter talked for several minutes and this nurse explained that we are all very close to patient here and want to keep her comfortable. This nurse explained that we have cared for her many times. Daughter then stated that she trusts what this nurse is saying and if patient appears comfortable then do not put her on the bipap. This nurse asked multiple times exactly what the daughter's wishes were and verbally verified that daughter did not want the bipap. RT and MD notified.
--- NOTE | 2020-06-28 22:20 | PC.NURSE ---
Patient continues to have agonal breathing. O2 continues @ 4 lpm/nc. Respirations very shallow. No mottling noted. Mouth care done and patient tolerated well. Chap stick applied to lips and patient then rubbed her lips together. Asked patient if she could squeeze nurses hand and patient didn't respond.
--- NOTE | 2020-06-28 23:00 | PC.NURSE ---
This nurse and charge nurse checked on patient. Agonal breathing continues on O2 @ 4 lpm/nc. Patient slightly squeezed charge nurses hand when asked to. Patient does not appear uncomfortable. Collins catheter patent and draining clear yellow urine.
--- NOTE | 2020-06-28 23:15 | PC.NURSE ---
Patient's daughter, Tyesha St, called again asking if patient needs to be on BiPap machine. This nurse explained that patient is in end of life stage and that BiPap is not going to make patient any more comfortable than the O2 she is on per nasal cannula. Daughter hung up after saying okay.
[2020-06-29 02:00] VITALS: BP 105/58; PULSE 102; RESP 48; TEMP 36.3; O2SAT 68
--- NOTE | 2020-06-29 02:00 | PC.NURSE ---
Patient continues with agonal breathing. O2 on @ 4 lpm/nc. No mottling noted. Collins catheter patent and draining clear yellow urine. Mouth care done. Patient being turned and positioned q 2 hours.
--- NOTE | 2020-06-29 04:00 | PC.NURSE ---
Patient continues with agonal breathing with O2 on @ 4 lpm/nc. No mottling noted.
[2020-06-29 04:16] VITALS: BP 104/49; PULSE 94; RESP 36; TEMP 36.5; O2SAT 63
[2020-06-29 06:20] VITALS: BP 100/51; PULSE 92; RESP 40; TEMP 36.3; O2SAT 67
--- NOTE | 2020-06-29 06:25 | PC.NURSE ---
Patient turned and positioned and mouth care done. Patient grimacing when being turned and positioned. O2 continues @ 4 lpm/nc. When nurse was checking patient's feet and legs for mottling patient was moving her feet just a little bit. PRN pain med given.
[2020-06-29 08:00] VITALS: BP 107/60; PULSE 108; RESP 40; TEMP 36.7; O2SAT 72
[2020-06-29] MEDS: FUROSEMIDE INJ 40 MG/4 ML VIAL IV PUSH (10:07)
--- NOTE | 2020-06-29 12:05 | PC.NURSE ---
ORAL CARE GIVEN USING ORAL SPONGE SWAB. PT DID NOT RESPOND.
--- NOTE | 2020-06-29 12:22 | PM.DS ---
DS: Admitting Diagnosis Admitting Diagnosis Admitting Diagnosis: CHF EXACERBATION DS: Discharge Diagnosis Discharge Diagnosis (1) Acute alteration in mental status: Code(s): R41.82 - Altered mental status, unspecified Status: Acute Assessment and Plan: possibly secondary to hypoxia versus COVID-19 versus respiratory acidosis patient comfort care neurochecks needed will make sure patient is comfort will discharge to hospice agreed upon by daughter Tyesha (2) COPD exacerbation: Code(s): J44.1 - Chronic obstructive pulmonary disease with (acute) exacerbation Status: Acute Assessment and Plan: continue continuous oxygen patient is discharging to hospice (3) Acute dyspnea: Code(s): R06.00 - Dyspnea, unspecified Status: Acute Assessment and Plan: secondary to COVID-19 rule out versus COPD versus CHF continue use of oxygen (4) Elevated brain natriuretic peptide (BNP) level: Code(s): R79.89 - Other specified abnormal findings of blood chemistry Status: Acute Assessment and Plan: patient does a history of congestive patient is discharged to [facility] (5) Elevated liver enzymes: Code(s): R74.8 - Abnormal levels of other serum enzymes Status: Acute Assessment and Plan: elevated liver enzymes will speak with patient's POA to determine how aggressive she wants to treatment plan to be patient was discharged home to hospice (6) Hypothyroidism: Code(s): E03.9 - Hypothyroidism, unspecified Status: Acute Assessment and Plan: continue Synthroid (7) Atrial fibrillation, chronic: Code(s): I48.20 - Chronic atrial fibrillation, unspecified Status: Acute Assessment and Plan: patient is discharging to [facility] (8) GERD (gastroesophageal reflux disease): Code(s): K21.9 - Gastro-esophageal reflux disease without esophagitis Status: Acute (9) COVID-19 ruled out: Code(s): Z03.818 - Encounter for observation for suspected exposure to other biological agents ruled out Status: Acute (10) DVT prophylaxis: Code(s): Z29.9 - Encounter for prophylactic measures, unspecified Status: Acute (11) Hyperkalemia: Code(s): E87.5 - Hyperkalemia Status: Acute DS: Summary Time Spent with Patient Time attestation: Total time spent providing and/or coordinating discharge services:60 Exam Narrative: Exam Narrative: General: unresponsive , actively dying HEENT: Normocephalic, atraumatic. PERRL, EOMI. Sclerae anicteric. Oral mucosa moist. Oropharynx clear. Neck: Supple. Respiratory: diminished Cardiovascular: bradycardic Gastrointestinal: Abdomen is soft, nontender, and nondistended with positive bowel sounds. No organomegaly. Skin: Warm, dry, and slightly pale.. No rash or lesions on limited exam. Extremities: Radial and pedal pulses week Neurological: unresponsive review of systems unable to determine due to patient's medical condition DS: Data Data Completed and Pending Labs on day of discharge: Preliminary micro results at discharge 06/26/20 22:07 Blood Culture - Preliminary Blood 06/26/20 22:00 Blood Culture - Preliminary Blood Discharge Plan Discharge Attending physician on discharge: Messi Barrow Discharging Clinician: Cecelia Lopez Patient Disposition: Hospice - Medical Facility Activity: may drive after 2 weeks and as tolerated Diet: as tolerated Discharge Instructions: RESIDENTIAL HOSPICE TO FOLLOW AT DISCHARGE: FAX D/C INSTUCTIONS TO NOTIFY RESIDENTIAL WHEN DISCHARGED AT Stand Alone Forms: General Discharge Information, Halfway Discharge Discharge Medications: New morphine 10 mg/mL Syringe 5 mg PO Q3H PRN (Reason: Pain Rated 7-10) Qty: 30 RF: 0 lorazepam [Ativan] 1 mg tablet 1 mg P
--- NOTE | 2020-06-29 13:24 | PC.NURSE ---
PT FOUND TO BE WITHOUT RESPIRATIONS OR HEARTBEAT AT THIS TIME. OXYGEN REMOVED. NURSE PRACTITIONER AND PHYSICIAN NOTIFIED.
--- NOTE | 2020-06-29 13:31 | PC.NURSE ---
DAUGHTER, KEVAN KEATING, NOTIFIED OF PATIENT'S .
--- NOTE | 2020-06-29 13:34 | PM.DDS ---
Discharge Sum: Prov Provider Primary care physician: Olvin Iglesias MD Admitting provider: Manfred Andrews MD Consults: 06/28/20 Care Coordination Consult Routine Comment: Admit to hospice Reason for Consult:: Hospice Referral Discharge Sum: Diag Contributing Factors (1) Acute alteration in mental status: (2) COPD exacerbation: (3) Acute dyspnea: (4) Elevated brain natriuretic peptide (BNP) level: (5) Elevated liver enzymes: (6) Hypothyroidism: (7) Atrial fibrillation, chronic: (8) GERD (gastroesophageal reflux disease): (9) COVID-19 ruled out: (10) DVT prophylaxis: (11) Hyperkalemia: Discharge Sum: Summary Date and Time Date of admission: 06/26/20 23:08 Additional Data Attending physician: Manfred Andrews MD
--- NOTE | 2020-06-29 13:54 | PM.EVENT ---
Event Note Event Note Event Note: 1330: Called to the bedside as nursing staff found the patient to be pulseless. Patient was pulseless centrally and peripherally with no precordial heart sounds or respiratory effort. Pupils fixed and dilated.
--- NOTE | 2020-06-29 23:23 | PM.EVENT ---
Event Note Event Note Event Note: I have examined the patient and reviewed the chart. I discussed the patient's care with Cuate Lopez APN and agree with her assessment and plan.
== END 2020-06-29 13:19 | disposition expired | DRG 190 ==
LOC: CHSED 23:04 → CHS2ND 06-28 07:49
PROVIDERS: Admitting Provider Emergency Medicine; Emergency Provider Emergency Medicine; PCP Internal Medicine; Visit Provider Emergency Medicine
DX: I50.23 Acute on chronic systolic (congestive) heart failure (principal); J44.9 Chronic obstructive pulmonary disease, unspecified; I48.20 Chronic atrial fibrillation, unspecified; E78.5 Hyperlipidemia, unspecified; K22.2 Esophageal obstruction; K21.9 Gastro-esophageal reflux disease without esophagitis; K57.90 Diverticulosis of intestine, part unspecified, without perforation or abscess without bleeding; F17.200 Nicotine dependence, unspecified, uncomplicated; J44.1 Chronic obstructive pulmonary disease with (acute) exacerbation; E87.5 Hyperkalemia; E03.9 Hypothyroidism, unspecified; Z51.5 Encounter for palliative care; Z20.828 Contact with and (suspected) exposure to other viral communicable diseases; Z86.73 Personal history of transient ischemic attack (TIA), and cerebral infarction without residual deficits
CPT/HCPCS: 36415; 36600; 71045; 80053; 80162; 82805; 83605; 83735; 83880; 84484; 85025; 85610; 85730; 87040; 87635; 93005; 94640; 94660; 96374; 99284; 99285; A9270; C9803; J1940; J2060; J2930; J7040; U0003